=== PATIENT | male | born 1960 | race Caucasian/White ===

== ENCOUNTER 2019-10-10 15:08 | Outpatient (CLI) | payer OTHER, SELFPAY ==
--- NOTE | ~2019-10-10 | US_ITS ---
EXAMINATION: US soft tissue abdomen DATE: 10/10/2019 15:56 INDICATION: Palpable lump at the anterior right lower abdomen TECHNIQUE: Multiple grayscale and Doppler ultrasound images of the region of concern at the anterior right lower quadrant were obtained. COMPARISON: None FINDINGS/IMPRESSION: Nonspecific 2.0 x 0.7 x 2.2 cm subcutaneous mass at the region of concern which is isoechoic and with similar echotexture to the surrounding subcutaneous fat most consistent with and statistically most likely to represent a lipoma. Reviewed, dictated and finalized at location A. IE PADDER
== END 2019-10-10 15:09 | disposition home or self-care (01) ==
PROVIDERS: PCP Family Medicine; Visit Provider Family Medicine
DX: R19.00 Intra-abdominal and pelvic swelling, mass and lump, unspecified site (principal)
CPT/HCPCS: 76705

== ENCOUNTER 2023-11-20 21:48 | Emergency (ER) | payer OTHER, SELFPAY ==
[2023-11-20 22:14] VITALS: BP 148/92; PULSE 101; RESP 16; TEMP 36.1; O2SAT 94
[2023-11-20 23:23] VITALS: BP 134/89; PULSE 78; RESP 16; TEMP 36.6; O2SAT 97
--- NOTE | 2023-11-20 23:39 | PC.NURSE ---
Patient stated he was in pain. Notified EDP Dr. Olvera who VRBO [phone] Mouthcard PO.
[2023-11-20] MEDS: HYDROcodone/acetaminophen (*CRX) 5-325 MG TABLET 1 TAB PO (23:42)
[2023-11-20] MEDS: CYCLOBENZAPRINE HCL 10 MG TABLET PO (23:44)
--- NOTE | 2023-11-21 00:19 | ED.BACK ---
HPI - Back Pain/Injury General Chief Complaint: Back Pain/Injury Stated Complaint: L lower back pain, radiates down leg Time Seen by Provider: 11/20/23 23:38 History of Present Illness HPI Narrative: 63-year-old male presents to the emergency department for evaluation of left lower back pain. Patient states he had been at the gym a few weeks ago and after doing some straight leg it does lives he began to have a twinge in his left lower back. Patient states over the course of the week the pain did come and go but then began to worsen again during work today. Patient states he has gout left lower back pain that radiates to his left buttock and partially down his left thigh. Patient states that is not past his knee. Patient denies any associated numbness or weakness. Related Data Home Medications Medication Instructions Recorded Confirmed testosterone cypionate 100 mg/mL 50 mg IM ONCE 04/18/22 10/22/23 intramuscular oil (Depo-Testosterone) Allergies Allergy/AdvReac Type Severity Reaction Status Date / Time No Known Allergies Allergy Verified 10/22/23 15:04 Review of Systems Review of Systems: All systems reviewed & are unremarkable except as noted in HPI and below PMFSH Surgical History Surgical History H/O colonoscopy H/O hernia repair History of appendectomy Family History Family History Sibling Family history of thyroid disease Grandparent Diabetes mellitus Mother Family history of pancreatic cancer Family history of genetic disorder Other Family history of liver disease Social History Social History Social History: Caffeine- daily Smoking status: Never smoker Alcohol intake: current Drinks per week: 3 Alcohol use details: whiskey Exam Narrative: APPEARANCE: Well appearing, no pain, no distress, well-nourished. HEAD: normocephalic, atraumatic. EYES: PERRLA/EOMI, conjunctivae clear. NOSE: Normal no drainage NECK: Supple. No adenopathy, no masses. RESPIRATORY: Airway patent, respirations nonlabored. Clear to auscultation bilaterally, no rales, rhonchi, wheezing. CARDIOVASCULAR: Regular rate and rhythm without murmurs rubs or gallops. ABDOMINAL: Soft, nontender, nondistended, normal bowel sounds MUSCULOSKELETAL: Moves all extremities. Tenderness to left lower back and left buttock NEURO: Alert. Cranial nerves II through XII intact. Grossly intact SKIN: Warm, dry. Normal Color Course Course Emergency Course: Patient was discharged home with medications for pain control Vital Signs Vital signs: Vital Signs Temperature 97.0 F L 11/20/23 22:14 Pulse Rate 101 H 11/20/23 22:14 Respiratory Rate 16 11/20/23 22:14 Blood Pressure 148/92 H 11/20/23 22:14 Pulse Oximetry 94 11/20/23 22:14 Oxygen Delivery Room Air 11/20/23 22:14 Temperature 97.5 F L 11/21/23 00:55 Pulse Rate 77 11/21/23 00:55 Respiratory Rate 15 11/21/23 00:55 Blood Pressure 134/68 11/21/23 00:55 Pulse Oximetry 99 11/21/23 00:55 Oxygen Delivery Room Air 11/20/23 22:14 MDM - Back Pain/Injury MDM Narrative Medical decision making narrative: 63-year-old male presenting to the emergency department for evaluation of lower back pain that is consistent was sciatica. Patient is neurovascularly intact with no saddle anesthesia. Patient did feel improved with pain medication. Patient was discharged home with additional Flexeril and started on a Medrol Dosepak. Differential Diagnosis Differential diagnosis: Likely sciatica, strain of lumbar region, pyelonephritis, thoracic back pain and discitis Discharge Plan Discharge Clinical Impression: Sciatica Patient Disposition: Home, Self-Care Condition: Stable Instructions: Antibiotic Form, Sciatica (ED) Additional Instructions: Ibuprofen for nghia
[2023-11-21] MEDS: KETOROLAC 30 MG/ML VIAL (*BKC) IM (00:30)
[2023-11-21 00:55] VITALS: BP 134/68; PULSE 77; RESP 15; TEMP 36.4; O2SAT 99
== END 2023-11-21 00:56 | disposition home or self-care (01) ==
PROVIDERS: Emergency Provider Emergency Medicine; PCP Family Medicine
DX: M54.42 Lumbago with sciatica, left side (principal)
CPT/HCPCS: 96372; 99283; A9270; J1885

== ENCOUNTER 2023-12-02 15:31 | Outpatient (CLI) | payer OTHER, SELFPAY ==
--- NOTE | ~2023-12-02 | MR_ITS ---
EXAMINATION: MR lumbar spine wo con DATE: 12/02/2023 16:16 INDICATION: Low back pain. Left buttock pain. TECHNIQUE: Magnetic resonance imaging (MRI) of the lumbar spine was performed without intravenous con trast. Sequences included sagittal T2-weighted FSE, sagittal T2-weighted FS FSE, sagittal T1-weighted FSE, and axial T2-weighted FSE. COMPARISON: None FINDINGS: There is 9 degrees dextrocurvature of lumbar spine. Vertebral body heights are normal. Ther e is mildly decreased disc height from L1-L2 through L5-S1. The distal spinal cord signal intensity i s normal. The conus medullaris is at L1. The following disc levels are specifically discussed: L1-L2: The disc is bulging and has an annular fissure. There is mild bilateral facet joint osteoarthr itis. There is mild bilateral neural foraminal stenosis. There is mild central canal stenosis. L2-L3: The disc is bulging and has an annular fissure. There is mild bilateral facet joint osteoarthr itis. There is mild bilateral neural foraminal stenosis. There is mild central canal stenosis. L3-L4: The disc is bulging and has an annular fissure. There is moderate right and severe left facet joint osteoarthritis. There is a 4 mm synovial cyst posterior to left facet joint with surrounding ed hua. There is mild bilateral neural foraminal stenosis. There is mild central canal stenosis. L4-L5: The disc is bulging and has an annular fissure. There is moderate bilateral facet joint osteoa rthritis. There is moderate right and mild left neural foraminal stenosis. There is mild central mya l stenosis. L5-S1: The disc is bulging and has an annular fissure. There is moderate right and severe left facet joint osteoarthritis. There is mild bilateral neural foraminal stenosis. There is mild central canal stenosis. IMPRESSION: 1. Moderate right neural foraminal stenosis at L4-L5. Otherwise mild lumbar spondylosis. Reviewed, dictated and finalized at location A. IMPRESSION: 1. Moderate right neural foraminal stenosis at L4-L5. Otherwise mild lumbar spo ndylosis.
== END 2023-12-02 15:32 ==
LOC: GOSHIMG 15:33
PROVIDERS: PCP Family Medicine; Visit Provider Family Medicine
DX: M48.061 Spinal stenosis, lumbar region without neurogenic claudication (principal); M43.06 Spondylolysis, lumbar region
CPT/HCPCS: 72148

== ENCOUNTER 2024-09-05 06:00 | Day surgery (SDC) | payer OTHER, SELFPAY ==
[2024-08-16 09:44] VITALS: BMI 31.0
[2024-09-05] MEDS: LACTATED RINGERS 1,000 ML 150 ML IV CONT (06:30)
[2024-09-05 06:43] VITALS: BP 130/89; PULSE 90; RESP 15; TEMP 37.1; O2SAT 96
--- NOTE | 2024-09-05 07:18 | P.PNAN_ITS ---
Anes - Initial Pre Proc Eval Procedure: Operation Date: 09/05/24 07:30 Proposed Procedures p Screening Colonoscopy - Ernesto Feliciano DO Date/Time: 09/05/24 07:18 Surgeon: Ernesto Feliciano DO Pre Op Diagnosis: Neoplasm Screening Patient Data Age: 64 Gender: M Height: 1.83 m Weight: 104.8 kg Last Vital Signs Temp 37.1 C 09/05/24 06:43 Pulse 90 09/05/24 06:43 Resp 15 09/05/24 06:43 BP 130/89 09/05/24 06:43 Pulse Ox 96 09/05/24 06:43 O2 Del Method Room Air 09/05/24 06:43 Allergies Allergy/AdvReac Type Severity Reaction Status Date / Time No Known Allergies Allergy Verified 09/05/24 06:52 Home Medications ?Medication ?Instructions ?Recorded ?Confirmed ?Type testosterone cypionate 100 mg/mL 50 mg IM ONCE 04/18/22 08/16/24 History intramuscular oil (Depo-Testosterone) lisinopril 10 mg tablet See Rx Instructions .Route 07/19/24 09/05/24 Rx .COMPLEX #90 tabs simvastatin 10 mg tablet See Rx Instructions .Route 07/19/24 09/05/24 Rx .COMPLEX #90 tabs Patient hx anesthesia problems: none Family hx anesthesia problems: none Results Review: All pre-operative results and documents have been reviewed as part of the pre- operative evaluation. [facility] Past Medical History Medical History (Updated 09/05/24 @ 07:19 by Robi Shelley MD) HTN (hypertension) Surgical History Surgical History H/O hernia repair History of appendectomy H/O colonoscopy Family History Family History Sibling Family history of thyroid disease Grandparent Diabetes mellitus Mother Family history of pancreatic cancer Family history of genetic disorder Other Family history of liver disease Social History Social History Social History: Caffeine- daily Smoking status: Never smoker Alcohol intake: current Drinks per week: 3 Alcohol use details: whiskey Substance use: never Substance use type: does not use Living arrangements: with family Spiritual care concerns: No Anes - Eval Final PreProcedure Day of Procedure 09/05/24 07:18 Patient weight: obese Heart: regular rate and rhythm Lungs: clear to auscultation Airway: Mallampati scale class II Neurological: alert and oriented Last oral intake: >/= 8 hours ASA classification: III Emergent: no Anesthetic plan: proceed Anesthesia type and monitoring: general GIVS and standard monitoring Results Review: All pre-operative results and documents have been reviewed as part of the pre- operative evaluation. Informed Consent: The patient's anesthetic plan and its attendant risks and benefits were discussed with the patient/family/POA. Questions were solicited and answers provided to the satisfaction of the patient/family/POA.
--- NOTE | 2024-09-05 07:22 | P.HP_ITS ---
H&P: HPI History of Present Illness Date/Time: 09/05/24 07:22 Chief Complaint: Screening for colorectal cancer Narrative: 64 yo man presents for colonoscopy. Last done 10 years ago and was normal. Denies fam hx colon cancer. Denies hematochezia or melena. Review of Systems Review of Systems: All systems reviewed & are unremarkable except as noted in HPI and below Constitutional: Constitutional: Denies chills, Denies fever(s), Denies headache(s) and Denies weight loss Eyes: Eyes: Denies change in vision ENT: Denies dizziness, Denies headache(s), Denies neck mass and Denies throat swelling Cardiovascular: Cardiovascular: Denies chest pain, Denies lightheadedness and Denies dyspnea Respiratory: Respiratory: Denies cough, Denies dyspnea and Denies wheezing Gastrointestinal: Gastrointestinal: Denies abdominal pain, Denies change in bowel habits, Denies nausea and Denies vomiting Genitourinary: Genitourinary: Denies hematuria and Denies dysuria Musculoskeletal: Musculoskeletal: Reports as per HPI Integumentary/Breasts: Skin/Breast: Reports as per HPI Neurologic: Denies dizziness and Denies headache(s) Allergic/Immunologic: Allergic/Immunologic: Denies throat swelling and Denies wheezing COUNT INCLUDES THE [facility] Past Medical History Medical History (Updated 09/05/24 @ 07:19 by Robi Shelley MD) HTN (hypertension) Surgical History Surgical History H/O hernia repair History of appendectomy H/O colonoscopy Family History Family History Sibling Family history of thyroid disease Grandparent Diabetes mellitus Mother Family history of pancreatic cancer Family history of genetic disorder Other Family history of liver disease Social History Social History Social History: Caffeine- daily Smoking status: Never smoker Alcohol intake: current Drinks per week: 3 Alcohol use details: whiskey Substance use: never Substance use type: does not use Living arrangements: with family Spiritual care concerns: No Meds Home Medications and Allergies Home Medications ?Medication ?Instructions ?Recorded ?Confirmed ?Type testosterone cypionate 100 mg/mL 50 mg IM ONCE 08/19/22 12/17/24 History intramuscular oil (Depo-Testosterone) lisinopril 10 mg tablet See Rx Instructions .Route 07/19/24 09/05/24 Rx .COMPLEX #90 tabs simvastatin 10 mg tablet See Rx Instructions .Route 07/19/24 09/05/24 Rx .COMPLEX #90 tabs Allergies Allergy/AdvReac Type Severity Reaction Status Date / Time No Known Allergies Allergy Verified 09/05/24 06:52 Vital Signs Vital Signs - 24 hr 09/05/24 06:43 Temperature 98.7 F Pulse Rate 90 Respiratory Rate 15 Blood Pressure 130/89 Pulse Oximetry 96 Oxygen Delivery Room Air Exam Const: General: no acute distress and alert Orientation/consciousness: patient oriented x3 HENMT: Head: normocephalic and atraumatic Ears: hearing grossly normal bilaterally Face/Nose/Sinus: Normal nares present Mouth: Yes Normal oral and palatal mucosa present Eyes: Periorbital: periorbital findings normal Sclera: sclerae normal EOM: EOMs intact bilaterally Neck: Neck: normal visual inspection, no lymphadenopathy and trachea midline Chest: Chest palpation & inspection: normal inspection of the chest Resp: Effort & Inspection: normal respiratory effort Auscultation: clear to auscultation bilaterally Cardio: Jugular venous distension: no JVD Rate: regular rate Rhythm: regular rhythm Heart sounds: S1 normal heart sound present and S2 normal heart sound present Peripheral pulses: Peripheral pulses 2+ throughout GI: Inspection: normal to inspection GI Palp: Yes Soft to palpation, No Tenderness to palpation present (GI), No Guarding due to palpation present (GI) and No Rebound tenderness present Percussion: Yes normal to percussion Auscultation: normal bowel sounds : General: Yes no CVA tenderness Back/Spine/Pelvis: Back: no CVA tenderness Neuro: General: patient oriented x3, no focal motor deficits and CN's II-XI intact bilaterally Cognition (Neuro): normal cognition Speech: normal speech Motor exam (neuro): 5/5 motor strength present throughout Extrem: General: capillary refill normal and no clubbing, cyanosis or edema Assessment and Plan Assessment and plan (1) Screening for colon cancer: Code(s): Z12.11 - Encounter for screening for malignant neoplasm of colon Status: Acute Assessment and Plan: I have recommended colonoscopy. I have discussed the procedure, risks, benefits, and alternatives. Questions were answered. Patient is agreeable to proceed.
[2024-09-05 07:45] VITALS: BP 129/79; PULSE 77; RESP 16; O2SAT 96
[2024-09-05 07:55] VITALS: BP 153/87; PULSE 80; RESP 18; O2SAT 98
[2024-09-05 08:05] VITALS: BP 135/94; PULSE 71; RESP 18; O2SAT 98
--- NOTE | 2024-09-05 08:25 | WPDANESPN ---
Anes - Prog Note Post-Op Date/Time: 09/05/24 08:25 Cardiovascular status: normal Respiratory status: normal Airway patency: baseline Mental status: baseline Post-Op hydration status: normal Vital Signs: Last Vital Signs Temp 37.1 C 09/05/24 06:43 Pulse 71 09/05/24 08:05 Resp 18 09/05/24 08:05 BP 135/94 H 09/05/24 08:05 Pulse Ox 98 09/05/24 08:05 O2 Del Method Room Air 09/05/24 08:05 Pain Score (VAS): 0/10 I/O: Intake & Output 09/04/24 09/05/24 09/05/24 23:59 07:59 15:59 Intake Total 700 200 Balance 700 200 Patient Feedback: Patient satisfied with anesthetic care.
--- OUTSIDE RECORDS SUMMARY | 2024-09-11 14:26 | XMS_ITS | Encounter Summary ---
Author Organization [facility] Health Address [address] [place] [address] Care Team Providers Care Patient Service Specialist Name Role Phone Zev Villa MD Primary Care Provider [phone] Encounter Details Date Type Department Care Team (Late st Contact Info) Description 06/01/2023 Lab Requisition [facility] - DermPath Lab [address], [facility] [place] [address] [place] [address] [place] [address] Social History Tobacco Use Types Packs/Day Years Used Date Smoking Tobacco: Never Alcohol Use Standard Drinks/Week Comments Not Asked 0 (1 standard drink = 0.6 oz pur e alcohol) Sex and Gender Information Value Date Recorded Sex Assigned at Not on file Gender Identity Not on file Sexual Orientation Not on file documented as of this encounter Plan of Treatment Not on file documented as of this encounter Procedures Procedure Name Priority Date/Time Associated Diagnosis Comments DERMATOPATHOLOGY Routine 06/01/2023 3:33 AM CDT documented in this encounter Results * DERMATOPATHOLOGY (06/01/2023 3:33 AM CDT) Case Report Dermatopathology Report ? Case: [id number] ? Authorizing Provider: ??Josselin Andersen MD ? Collected: ? 06/01/2023 03:33 AM ? Ordering Location: ? [facility] DermPath Lab ? Received: ?06/01/2023 01:00 PM ? Pathologist: ? Zoey Mandujano MD ? Specimen: ?Skin, right calf ? 12:57 PM T DERMATOPATHOLOGY LABORATORY Final Diagnosis Specimen A. SKIN, right calf: LENTIGINOUS MELANOCYTIC NEVUS, JUNCTIONAL TYPE, IRRITATED (D22.71) 12:57 PM [facility] DERMATOPATHOLOGY LABORATORY Clinical History Atypical Nevus R/O MIS 12:57 PM T DERMATOPATHOLOGY LABORATORY Gross Description Specimen A: Received is one formalin filled container labeled with the patient's name and designated right calf. The specimen consists of a shave biopsy measuring 6x5x1 mm. Jar 0. 12:57 PM T DERMATOPATHOLOGY LABORATORY Microscopic Description Specimen A. SKIN, right calf: This is a junctional nevus. There is melanin pigment in the stratum corneum. There is a lentiginous proliferation of melanocytes between nests of cells along the dermal-epidermal junction. There is underlying fibroplasia of the papillary dermis. (Junctional Facundo's Nevus) 12:57 PM T DERMATOPATHOLOGY LABORATORY Disclaimer An external and internal positive and negative controls are appropriate for the histochemical, immunohistochemical and immunofluorescence stain(s) in this case (if any), except where stated explicitly. The performance characteristics of the stain(s) cited in this report were developed and its performance characteristic determined by the Dermatopathology Laboratory at [facility], directed by Dr. Ree Bolanos. These tests need not be, and therefore are not, approved by the [place] Food and Drug Administration. The tests are used for clinical purposes. Billing Codes Specimen Charges Stain Charges 79711 1 3 12:57 PM CDT DERMATOPATHOLOGY LABORATORY Embedded Images 3 12:57 PM CDT DERMATOPATHOLOGY LABORATORY Pathology/Cytolo gy TISSUE SPECIMEN FROM SKIN / Unknown 06/01/2023 3:33 AM CDT 06/01/2023 1:00 PM CDT Josselin Andersen MD LAB - PATHOLOGY/CYTO LOGY ORDERABLES DERMATOPATHOLOGY LABORATORY [facility] - Department of Dermatology [address] [phone] documented in this encounter Visit Diagnoses Not on filedocumented in this encounter Care Teams Patient Service Specialist Relationship Specialty Start Date End Date Zev Villa MD [address] [place] [id number] PCP - General 02/08/14 documented as of this encounter
--- OUTSIDE RECORDS SUMMARY | 2024-09-11 14:26 | XMS_ITS | Patient Health Summary ---
Author Organization [facility] Address [address] [place] [address] Care Team Providers Care Ingredient Scaler Name Role Phone Zev Villa MD Primary Care Provider Note from [facility],non-owned Affiliates and Associated Physician Practices is amultiple site organization consisting of ambulatory clinics and hospital sitesin [place], [place], [place] and [place]. This disclosure is being madepursuant to the Care Everywhere program and may not contain all information available regarding this patient. Last updated 18.[facility] [employer] Allergies * No Known Drug Allergy(Other) -Low Criticality Active Problems Problem Noted Date Diagnosed Date Malignant melanoma of other part of trunk 2013 Social History Tobacco Use Types Packs/Day Years Used Date Smoking Tobacco: Never Alcohol Use Standard Drinks/Week Comments Not Asked 0 (1 standard drink = 0.6 oz pur e alcohol) Sex and Gender Information Value Date Recorded Sex Assigned at Not on file Gender Identity Not on file Sexual Orientation Not on file Last Filed Vital Signs Vital Sign Reading Time Taken Comments Blood Pressure 136/78 03/19/2015 7:42 AM CDT Pulse 72 03/19/2015 7:42 AM CDT Temperature 36.1 ??C (97 ??F) 03/19/2015 7:42 AM CDT Respiratory Rate - - Oxygen Saturation 96% 03/19/2015 7:42 AM CDT Inhaled Oxygen Concentration - - Weight 93.4 kg (206 lb) 03/19/2015 7:42 AM CDT Height 180.3 cm (5' 11 ) 03/20/2014 8:10 AM CDT Body Mass Index 28.73 03/20/2014 8:10 AM CDT Procedures * DERMATOPATHOLOGY(Performed 06/01/2023) * DERMATOPATHOLOGY(Performed 06/29/2017) * DERMATOPATHOLOGY(Performed 09/25/2015) * DERMATOPATHOLOGY(Performed 08/15/2014) * DERMATOPATHOLOGY(Performed 05/16/2014) * PATHOLOGY/GENETICS HISTORICAL-ONBASE(Performed 02/17/2014) * DERMATOPATHOLOGY(Performed 02/02/2014) Results * DERMATOPATHOLOGY (06/01/2023 3:33 AM CDT) Only the most recent of6 resultswithin the time period is included. Case Report Dermatopathology Report ? Case: [id number] ? Authorizing Provider: ??Josselin Andersen MD ? Collected: ? 06/01/2023 03:33 AM ? Ordering Location: ? [facility] DermPath Lab ? Received: ?06/01/2023 01:00 PM ? Pathologist: ? Zoey Mandujano MD ? Specimen: ?Skin, right calf ? 12:57 PM CDT DERMATOPATHOLOGY LABORATORY Final Diagnosis Specimen A. SKIN, right calf: LENTIGINOUS MELANOCYTIC NEVUS, JUNCTIONAL TYPE, IRRITATED (D22.71) 3 12:57 PM CDT DERMATOPATHOLOGY LABORATORY Clinical History Atypical Nevus R/O MIS 3 12:57 PM CDT DERMATOPATHOLOGY LABORATORY Gross Description Specimen A: Received is one formalin filled container labeled with the patient's name and designated right calf. The specimen consists of a shave biopsy measuring 6x5x1 mm. Jar 0. 12:57 PM CDT DERMATOPATHOLOGY LABORATORY Microscopic Description Specimen A. SKIN, right calf: This is a junctional nevus. There is melanin pigment in the stratum corneum. There is a lentiginous proliferation of melanocytes between nests of cells along the dermal-epidermal junction. There is underlying fibroplasia of the papillary dermis. (Junctional Facundo's Nevus) 12:57 PM CDT DERMATOPATHOLOGY LABORATORY Disclaimer An external and internal positive and negative controls are appropriate for the histochemical, immunohistochemical and immunofluorescence stain(s) in this case (if any), except where stated explicitly. The performance characteristics of the stain(s) cited in this report were developed and its performance characteristic determined by the Dermatopathology Laboratory at [facility], directed by Dr. Ree Bolanos. These tests need not be, and therefore are not, approved by the [place] Food and Drug Administration. The tests are used for clinical purposes. Billing Codes Specimen Charges Stain Charges 58516 1 3 12:57 PM CDT DERMATOPATHOLOGY LABORATORY Embedded Images 3 12:57 PM CDT DERMATOPATHOLOGY LABORATORY Pathology/Cytolo gy TISSUE SPECIMEN FROM SKIN / Unknown 06/01/2023 3:33 AM CDT 06/01/2023 1:00 PM CDT Josselin Andersen MD LAB - PATHOLOGY/CYTO LOGY ORDERABLES DERMATOPATHOLOGY LABORATORY [facility] - Department of Dermatology [address] [phone] * PATHOLOGY/GENETICS HISTORICAL-ONBASE (02/17/2014) 02/17/2014 Narrative [facility] - 03/01/2014 2:18 PM CDT Historical Provider LAB - CHEMISTRY O RDERABLES [facility] [address] [place] [address], [facility] Care Teams Ingredient Scaler Relationship Specialty Start Date End Date Zev Villa MD [address] [place] [phone] PCP - General 02/08/14
--- OUTSIDE RECORDS SUMMARY | 2024-09-11 14:26 | XMS_ITS | Referral Summary ---
Author Organization [facility] Address [address] [place] [address] Care Team Providers Care Clinical Dietitian Name Role Phone Zev Villa MD Primary Care Provider [phone] Source Comments [facility],non-owned Affiliates and Associated Physician Practices is amultiple site organization consisting of ambulatory clinics and hospital sitesin [place], [place], [place] and [place]. This disclosure is being madepursuant to the Care Everywhere program and may not contain all information available regarding this patient. Last updated 18.[facility] Allergies Active Allergy Reactions Criticality Noted Date Comments No Known Drug Allergy Other Low 02/13/2014 Pt. States that his dad and sister/brother was/are allergic to morphine. He has not yet had morphine as is not sure if he is allergic too. Active Problems Problem Noted Date Diagnosed Date [...] Mass Index 28.73 03/20/2014 8:10 AM CDT Plan of Treatment Not on file Care Teams Clinical Dietitian Relationship Specialty Start Date End Date Zev Villa MD [address] [place] [address] PCP - General 02/08/14
--- OUTSIDE RECORDS SUMMARY | 2024-09-11 14:26 | XMS_ITS | Clinical Summary ---
Author Organization [facility] [employer] Address [address] [place] [address] Care Team Providers Care [employer] Worker Name Role Phone Zev Villa MD Primary Care Provider Source Comments [facility],non-owned Affiliates and Associated Physician Practices is amultiple site organization consisting of ambulatory clinics and hospital sitesin [place], [place], [place] and [place]. This disclosure is being madepursuant to the Care Everywhere program and may not contain all information available regarding this patient. Last updated 18.[facility] [employer] Allergies Active Allergy Reactions Criticality Noted Date [...] 03/20/2014 8:10 AM CDT Plan of Treatment Health Maintenance Due Date Last Done Comments COLOGUARD (AGES 45-75) - COL ON CA SCREENING 1961 COLON MONITORING 1961 COLONOSCOPY - COLON CA SCREENING 1961 CT COLONOGRAPHY - COLON CA SCREENING 1961 Colorectal Cancer Screening 1961 FIT - COLON CA SCREENING 1961 FLEX SIG - COLON CA SCREENING 1961 LIPID TESTING 1961 HIV SCREENING 1976 HEPATITIS C SCREENING 08/21/1979 DTAP/TDAP/TD VACCINES (1 - Tdap) 1980 ZOSTER VACCINE (1 of 2) 2011 DEPRESSION SCREENING 08/31/2023 COVID-19 VACCINE (1 - 2023-2 5 season) 2024 INFLUENZA VACCINE (#1) 2024 Respiratory Syncytial Virus (RSV) Vaccine Pt: or over 60 yrs (1 - 1-dose 75+ series) 2036 HEPATITIS B VACCINE Aged Out No longe r eligible based on patient's age to complete this topic HIB VACCINE Aged Out No longer eligi ble based on patient's age to complete this topic HPV VACCINE Aged Out No longer eligi ble based on patient's age to complete this topic MENINGOCOCCAL VACCINE Aged Out No drew rosi eligible based on patient's age to complete this topic PNEUMOCOCCAL VACCINE Aged Out No long er eligible based on patient's age to complete this topic Care Teams [employer] Worker Relationship Specialty Start Date End Date Zev Villa MD [address] [place] [id number] [facility] - General 02/08/14
--- OUTSIDE RECORDS SUMMARY | 2024-09-11 14:27 | XMS_ITS | Encounter Summary ---
Author Organization [facility] Healthcare Address [address] [place] [address] Care Team Providers Care Printing Estimator Name Role Phone Maia Real DO Primary Care Provider [phone]- [phone] Bill Lauren MD, Inocencio Stein Encounter Details Date Type Department Care Team (Late st Contact Info) Description 05/17/2021 11:00 AM CDT - 05/17/2021 12:15 PM CDT Surgery [facility] Operating Room [address] [place] [address] Inocencio Khan Jr., MD [address] [facility] [address] [place] [address] TRANSPERINEAL EXACT VU GUIDED PROSTATE BIOPSY Surgery Details Date/Time Status Location OR Service Patient Class Case Cl ass Case Type Trauma Case? 05/17/2021 11:00 AM Posted [facility] OPERATING ROOM OR Urology Outpatient Elective Panel 1 Procedure LRB Anes Op Region Wound Class Comments TRANSPERINEAL EXACT VU GUIDED PROSTATE BIOPSY N/A Monitor Anesthesia Care Perineum Class II - Clean Contaminated 3RD CASE Surgeon Surgeon Role Service Panel Inocencio Khan Jr., MD Primary Urology 1 Itzel Bah MD Resident - Assisting Urology 1 documented in this encounter Social History Tobacco Use Types Packs/Day Years Used Date Smoking Tobacco: Never Smokeless Tobacco: Never AUDIT-C Answer Date Recorded Q1: How often do you have a drink containing alc ohol? 2-3 times a week 05/17/2021 Q2: How many drinks containi ng alcohol do you have on a typical day when you are drinking? 1 or 2 05/17/2021 Q3: How often do you have si x or more drinks on one occasion? Monthly 05/17/2021 Sex and Gender Information Value Date Recorded Sex Assigned at Not on file Legal Sex Male 1:35 PM CDT Gender Identity Not on file Sexual Orientation Straight 02/19/2021 7: 19 AM CDT documented as of this encounter Last Filed Vital Signs Vital Sign Reading Time Taken Comments Blood Pressure 137/87 05/17/2021 12:15 PM CDT Pulse 74 05/17/2021 12:15 PM CDT Temperature 36.1 ??C (97 ??F) 05/17/2021 12:15 PM CDT Respiratory Rate 10 05/17/2021 12:15 PM CDT Oxygen Saturation 96% 05/17/2021 12:15 PM CDT Inhaled Oxygen Concentration - - Weight 99.2 kg (218 lb 9.6 oz) 05/17/2021 9:20 A M CDT Height 180.3 cm (5' 11 ) 05/17/2021 9:20 AM CDT Body Mass Index 30.49 05/17/2021 9:20 AM CDT documented in this encounter Discharge Instructions * Discharge Instructions* Itzel Bah MD - 05/17/2021 10:05 AM CDT Discharge Instructions: Surgery performed: Transperineal prostate biopsy New medications: - Acetaminophen and ibuprofen as needed for pain; take this scheduled for the next 72 hours, then afterwards as needed - Docusate/miralax as needed for constipation, available [id number] Pain Control: - Start by applying ice packs or heating pads and using over the counter medications such as acetaminophen (Tylenol) or ibuprofen (Advil or Motrin) unless otherwise specified by your doctor. - If your pain is still uncontrolled, you may take a stronger, prescription medication that contains opioids. Take only as much of this medication as you need. - As you recover, your pain will decrease and you will need less pain medication. You should only take pain medication if you are in pain. - If you are no longer taking any of your opioid medication and have leftover pills, dispose of them by placing them in a plastic bag, adding dish soap, and throwing them in the trash. Diet: [place] diet: At first eat a bland diet; avoid foods that are high in fiber, have a lot of spices, or are high infat. You can begin slowly eating these foods when you are feeling better. Activity: - Do NOT lift anything over 10 pounds for 4 weeks - Do NOT drive or operate machinery if you are taking narcotic pain medicine. - Do NOT take baths or swim in pools or hot tubs for 4 weeks. - Walking is encouraged. Climbing stairs is OK. As part of your prostate biopsy procedure, a needle was inserted into the skin between the anus andscrotum. In order to promote healing: - Do NOT sit in hard backed chairs, ride bicycles, or engage in other activities that may put pressure on the perineal region. - Do NOT place anything in your rectum. This includes medications such as suppositories, applicators of any sort, enemas, sexual paraphernalia, or anal intercourse. - Avoid straining to urinate or have a bowel movement. Take stool softeners as necessary to help with constipation. Contact your doctor if: - You have a fever higher than 101 F (38.3 C). - You have nausea, vomiting or diarrhea. - Your pain medicine is not helping your pain. - You feel dizzy, very tired or like you may faint. - You are unable to urinate. - You have large blood clots in your urine. (Small amounts of blood-tinged urine and a few small clots are normal, especially after physical activity.) Thursday through Thursday, 8 AM to 5:00 PM, call [phone] and ask for a member of your doctor's team. For urgent matters, after 5:00 PM during the week, on weekends and holidays, call [phone] and ask to have the Urology Transformer Inspector Physician paged for you. Follow up: Your urologist will call you with the results of the biopsy. To schedule an appointment, or if you have any questions or concerns, please call the urology office at . No future appointments. documented in this encounter Medications at Time of Discharge CREATINE MONOHYDRATE ORALIndications:s upplement Take by mouth every morning Powder, mix in water glucosamine HCl/chondroitin villa (GLUCOSAMINE-FRANCA DROITIN ORAL)Indications: supplement Take 1 capsule by mouth every morning KRILL OIL ORALIndications:s upplement Take 1 capsule by mouth every morning lisinopriL (PRINIVIL,ZESTRIL ) 10 mg tabletIndications :hypertension Take 10 mg by mouth every morning 05/05/2021 LYSINE ORALIndications:s upplement Take 1 capsule by mouth every morning multivitamin capsuleIndication s:Vitamin Deficiency Prevention Take 1 capsule by mouth every morning sildenafiL (VIAGRA) 100 mg tablet Take 100 mg by mouth as needed for erectile dysfunction 03/13/2021 simvastatin (ZOCOR) 10 mg tabletIndications :hyperlipidemia Take 10 mg by mouth nightly 05/05/2021 testosterone cypionate (DEPO-TESTOTERONE ) 100 mg/mL injectionIndicati ons:Androgen Deficiency Inject 0.25 mL into the muscle as instructed 2 (two) times a week Wed, Sat. 04/13/2020 vitamin E acetate (VITAMIN E ORAL)Indications: supplement Take 1 capsule by mouth every morning ibuprofen (ADVIL,MOTRIN) 400 mg tablet Take 400 mg by mouth as needed for pain 3 documented as of this encounter Discharge Disposition Disposition Code Departure Means Destination Discharge to home or self care documented in this encounter H&P Notes * Inocencio Khan Jr., MD - 05/17/2021 10:29 AM CDT I have reviewed the H&P, examined the patient, and endorse the findings as written. Plan of Care : Based on the above findings, I consider Justin Samuels to be an acceptable risk for : Procedure(s): TRANSPERINEAL EXACT VU GUIDED PROSTATE BIOPSY Source Note - Darlyn Duke MD - 05/10/2021 8:45 AM CDT Images from the original note were not included. Center for Preoperative Assessment and Planning Preoperative Evaluation Record Evaluation type/location: TPAP from [facility] Planned procedure site: [facility] OR Date: 05/10/21 NOTE: This note represents a preoperative evaluation initiated via telephone interview. NO PHYSICALEXAM was performed at the time of initial assessment. A physical exam may be added to this note anddocumented below. Anesthesia Evaluation Justin Samuels is a 60 y.o. male Procedure(s): TRANSPERINEAL EXACT VU GUIDED PROSTATE BIOPSY Pre-Op Diagnosis Codes: * Elevated PSA [R97.20] HISTORY HPI Justin Samuels is a 60 year old male with a PMH of HTN and elevated PSA who is being evaluated prior to undergoing transperineal exact VU guided prostate biopsy for elevated PSA . Past Medical History Information obtained from: patient and chart. Neurological Pertinent negatives: seizures; neuromuscular disease; CVA/stroke; TIA; CEA; ICA stenosis; dementia/mild cognitive impairment and carotid artery stent Cardiovascular + Hypertension Pertinent negatives: CAD ; [place] ; CABG ; valvular heart disease; valve replacement; atrial fibrillation; arrhythmia; pacemaker/ICD; PVD; DVT/PE; negative for CHF; drug-eluting stent(s); bare metal stent(s) and coronary angioplasty Respiratory Pertinent negatives: COPD; asthma; sleep apnea (LENORE); pulmonary hypertension; no O2 use outside thehospital and non-smoker Hepatic / Heme Pertinent negatives: liver disease; history of anemia; history of thrombocytopenia and history of Neha positive Gastrointestinal + GERD - PRN medication use only. Asymptomatic. Pertinent negatives: hiatal hernia Renal / Pertinent negatives: renal disease; dialysis and nephrolithiasis Musculoskeletal/Pain Pertinent negatives: chronic pain; chronic opioid use and previous treatment for opioid use disorder Endocrine / Other + Obesity (BMI >30) + Cancer history- skin cancer only. Pertinent negatives: diabetes mellitus; thyroid disease; rheumatological disease and transplanted organ Functional Capacity Functional capacity: 4-6 METs Comments: Patient states that they can walk 4 blocks at a moderate pace w/no SOB or CP Review of Systems + heartburn (occasional) Pertinent negatives: productive cough; wheezing; SOB; fever; chest pain; palpitations; orthopnea; pedal edema; PND; Sickle Cell disease/trait; previous transfusion; transfusion reaction; melena/hematochezia; easy bruising; bleeding problems; syncope; dizziness; muscle weakness; chronic pain; numbness/tingling; hard of hearing; vision loss; nausea; dysphagia; diarrhea; dentures/partials; chipped/loose teeth; abdominal pain; diaphoresis and no unexpected weight changeRecent cough or cold: reportssinus issues in the past 2 weeks. PAT Summary and Plans Cardiac risk classification of planned procedure: low cardiac risk. Preoperative assessment status: complete. Additional comments: Justin Samuels is a 60 y.o. male who is being evaluated prior to undergoing a lowcardiac risk surgery. Revised Cardiac Risk Index factors are (none) for a total RCRI of 0 out of 6.Functional capacity is 4-6 METs. Obstructive sleep apnea (LENORE) screening status is STOP-BANG incomplete at 3-4 suggesting MODERATE risk for LENORE. Neck circumference pending. May need LENORE order set initiated if Co2 >27. This assessment was performed via telephone. Therefore the physical exam has been deferred to the day of surgery team. The patient was provided with preoperative instructions for their medications. The patient was instructed to shower/bathe the night prior and the morning of the planned procedure using an antibacterial soap. Patient instructions were provided electronically sent via [employer]. Patient verbalized understanding of preoperative plan. Blood bank needs for day of procedure: No type and screen needed Pending labs/tests include: None Patient's COVID19 status is: Unexposed. The patient currently has no concerning symptoms of COVID19. Patient's COVID-19 vaccination status is Fully vaccinated. Documentation of vaccination status is available in the Epic Immunization tab. Plan for pre-procedure COVID19 testing: Telephone assessmentperformed. Request placed for pre-procedure COVID19 testing to be performed on 05/13/21. [facility] will place the order for testing. Result to be reviewed by surgeon's office. TPAP process complete. Preoperative evaluation performed by Joana Solis NP on 05/10/21 at 8:51 AM . Patient Active Problem List Diagnosis ??? Elevated PSA Past Medical History: Diagnosis Date ??? Hypertension Past Surgical History: Procedure Laterality Date ??? APPENDECTOMY 1969 ??? COLONOSCOPY 2010 ??? HERNIA REPAIR 1987 ??? SKIN CANCER EXCISION 2013 back No Known Allergies Med List Status: Nurse Complete Set By: Bridgett Holder RN at 05/09/2021 2:39 PM Taking? Last Dose Start Date End Date Provider CREATINE MONOHYDRATE ORAL 05/09/2021 -- -- Vijaya Hayes MD glucosamine HCl/chondroitin villa (GLUCOSAMINE-CHONDROITIN ORAL) 05/09/2021 -- -- Vijaya Hayes MD ibuprofen (ADVIL,MOTRIN) 400 mg tablet Past Week -- -- Vijaya Hayes MD KRILL OIL ORAL 05/09/2021 -- -- Vijaya Hayes MD lisinopriL (PRINIVIL,ZESTRIL) 10 mg tablet 05/09/2021 05/05/21 -- Vijaya Hayes MD LYSINE ORAL 05/09/2021 -- -- Vijaya Hayes MD multivitamin capsule 05/09/2021 -- -- Vijaya Hayes MD sildenafiL (VIAGRA) 100 mg tablet Past Week 03/13/21 -- Vijaya Hayes MD simvastatin (ZOCOR) 10 mg tablet 05/08/2021 05/05/21 -- Vijaya Hayes MD testosterone cypionate (DEPO-TESTOTERONE) 100 mg/mL injection Past Week 04/13/20 -- Vijaya Hayes MD vitamin E acetate (VITAMIN E ORAL) 05/09/2021 -- -- Vijaya Hayes MD No current facility-administered medications for this encounter. Current Outpatient Medications: ??? CREATINE MONOHYDRATE ORAL ??? glucosamine HCl/chondroitin villa (GLUCOSAMINE-CHONDROITIN ORAL) ??? ibuprofen (ADVIL,MOTRIN) 400 mg tablet ??? KRILL OIL ORAL ??? lisinopriL (PRINIVIL,ZESTRIL) 10 mg tablet ??? LYSINE ORAL ??? multivitamin capsule ??? sildenafiL (VIAGRA) 100 mg tablet ??? simvastatin (ZOCOR) 10 mg tablet ??? testosterone cypionate (DEPO-TESTOTERONE) 100 mg/mL injection ??? vitamin E acetate (VITAMIN E ORAL) Social History Tobacco Use Smoking Status Never Smoker Smokeless Tobacco Never Used Substance and Sexual Activity Alcohol Use Not on file Substance and Sexual Activity Drug Use Never No family history on file. There were no vitals filed for this visit. Ridge index score: 100 DOS Physical Exam Medical history, medications, and allergies reviewed. Attestation: This PAT evaluation Airway Exam: Mallampati: III Cervical ROM: FROM TM distance: 3.5 Jaw ROM: full Cardiovascular Exam: Rate: regular Rhythm: regular Pulmonary Exam: LCTA, bilat EENT Exam: trachea midline Dental Exam: Appears intact Current state: Patient's current state is cooperative and interactive. Anesthesia Plan ASA 2 My patient is approved for the Anesthesia Controlled Medication protocol when under care of a GERIATRIC NURSE PRACTITIONER Planned anesthesia: General/TIVA Induction: Induction: intravenous. Postoperative Plan: Postoperative administration opioids intended. No postoperative mechanical ventilation intended. Informed Consent: Discussed plan with GERIATRIC NURSE PRACTITIONER. Anesthesia plan and risks discussed with patient. Consent and Attending signature: I and/or my designee have discussed the anesthesia plan, benefits, possible alternatives, parental presence at time of induction (if indicated), and clinically relevant risks that may include dental injury, unintentional awareness, and/or other complications. The patient and/or parent/legal guardian understand, and agree to proceed. All questions answered. * Itzel Bah MD - 05/17/2021 10:05 AM CDT I have reviewed the H&P, examined the patient, and endorse the findings as written. Plan of Care : Based on the above findings, I consider Justin Samuels to be an acceptable risk for : Procedure(s): TRANSPERINEAL EXACT VU GUIDED PROSTATE BIOPSY Cosigned by Inocencio Khan Jr., MD at 05/17/2021 10:30 AM CDT Source Note - Joana Solis NP - 05/10/2021 8:45 AM CDT Images from the original note were not included. Center for Preoperative Assessment and Planning Preoperative Evaluation Record Evaluation type/location: TPAP from [facility] Planned procedure site: [facility] OR Date: 05/10/21 NOTE: This note represents a preoperative evaluation initiated via telephone interview. NO PHYSICALEXAM was performed at the time of initial assessment. A physical exam may be added to this note anddocumented below. Anesthesia Evaluation Justin Samuels is a 60 y.o. male Procedure(s): TRANSPERINEAL EXACT VU GUIDED PROSTATE BIOPSY Pre-Op Diagnosis Codes: * Elevated PSA [R97.20] HISTORY HPI Justin Samuels is a 60 year old male with a PMH of HTN and elevated PSA who is being evaluated prior to undergoing transperineal exact VU guided prostate biopsy for elevated PSA . Past Medical History Information obtained from: patient and chart. Neurological Pertinent negatives: seizures; neuromuscular disease; CVA/stroke; TIA; CEA; ICA stenosis; dementia/mild cognitive impairment and carotid artery stent Cardiovascular + Hypertension Pertinent negatives: CAD ; [place] ; CABG ; valvular heart disease; valve replacement; atrial fibrillation; arrhythmia; pacemaker/ICD; PVD; DVT/PE; negative for CHF; drug-eluting stent(s); bare metal stent(s) and coronary angioplasty Respiratory Pertinent negatives: COPD; asthma; sleep apnea (LENORE); pulmonary hypertension; no O2 use outside thehospital and non-smoker Hepatic / Heme Pertinent negatives: liver disease; history of anemia; history of thrombocytopenia and history of Neha positive Gastrointestinal + GERD - PRN medication use only. Asymptomatic. Pertinent negatives: hiatal hernia Renal / Pertinent negatives: renal disease; dialysis and nephrolithiasis Musculoskeletal/Pain Pertinent negatives: chronic pain; chronic opioid use and previous treatment for opioid use disorder Endocrine / Other + Obesity (BMI >30) + Cancer history- skin cancer only. Pertinent negatives: diabetes mellitus; thyroid disease; rheumatological disease and transplanted organ Functional Capacity Functional capacity: 4-6 METs Comments: Patient states that they can walk 4 blocks at a moderate pace w/no SOB or CP Review of Systems + heartburn (occasional) Pertinent negatives: productive cough; wheezing; SOB; fever; chest pain; palpitations; orthopnea; pedal edema; PND; Sickle Cell disease/trait; previous transfusion; transfusion reaction; melena/hematochezia; easy bruising; bleeding problems; syncope; dizziness; muscle weakness; chronic pain; numbness/tingling; hard of hearing; vision loss; nausea; dysphagia; diarrhea; dentures/partials; chipped/loose teeth; abdominal pain; diaphoresis and no unexpected weight changeRecent cough or cold: reportssinus issues in the past 2 weeks. PAT Summary and Plans Cardiac risk classification of planned procedure: low cardiac risk. Preoperative assessment status: complete. Additional comments: Justin Samuels is a 60 y.o. male who is being evaluated prior to undergoing a lowcardiac risk surgery. Revised Cardiac Risk Index factors are (none) for a total RCRI of 0 out of 6.Functional capacity is 4-6 METs. Obstructive sleep apnea (LENORE) screening status is STOP-BANG incomplete at 3-4 suggesting MODERATE risk for LENORE. Neck circumference pending. May need LENORE order set initiated if Co2 >27. This assessment was performed via telephone. Therefore the physical exam has been deferred to the day of surgery team. The patient was provided with preoperative instructions for their medications. The patient was instructed to shower/bathe the night prior and the morning of the planned procedure using an antibacterial soap. Patient instructions were provided electronically sent via [employer]. Patient verbalized understanding of preoperative plan. Blood bank needs for day of procedure: No type and screen needed Pending labs/tests include: None Patient's COVID19 status is: Unexposed. The patient currently has no concerning symptoms of COVID19. Patient's COVID-19 vaccination status is Fully vaccinated. Documentation of vaccination status is available in the Epic Immunization tab. Plan for pre-procedure COVID19 testing: Telephone assessmentperformed. Request placed for pre-procedure COVID19 testing to be performed on 05/13/21. [facility] will place the order for testing. Result to be reviewed by surgeon's office. TPAP process complete. Preoperative evaluation performed by Joana Solis NP on 05/10/21 at 8:51 AM . Patient Active Problem List Diagnosis ??? Elevated PSA Past Medical History: Diagnosis Date ??? Hypertension Past Surgical History: Procedure Laterality Date ??? APPENDECTOMY 1969 ??? COLONOSCOPY 2010 ??? HERNIA REPAIR 1987 ??? SKIN CANCER EXCISION 2013 back No Known Allergies Med List Status: Nurse Complete Set By: Bridgett Holder RN at 05/09/2021 2:39 PM Taking? Last Dose Start Date End Date Provider CREATINE MONOHYDRATE ORAL 05/09/2021 -- -- Vijaya Hayes MD glucosamine HCl/chondroitin villa (GLUCOSAMINE-CHONDROITIN ORAL) 05/09/2021 -- -- Vijaya Hayes MD ibuprofen (ADVIL,MOTRIN) 400 mg tablet Past Week -- -- Vijaya Hayes MD KRILL OIL ORAL 05/09/2021 -- -- Vijaya Hayes MD lisinopriL (PRINIVIL,ZESTRIL) 10 mg tablet 05/09/2021 05/05/21 -- Vijaya Hayes MD LYSINE ORAL 05/09/2021 -- -- Vijaya Hayes MD multivitamin capsule 05/09/2021 -- -- Vijaya Hayes MD sildenafiL (VIAGRA) 100 mg tablet Past Week 03/13/21 -- Vijaya Hayes MD simvastatin (ZOCOR) 10 mg tablet 05/08/2021 05/05/21 -- Vijaya Hayes MD testosterone cypionate (DEPO-TESTOTERONE) 100 mg/mL injection Past Week 04/13/20 -- Vijaya Hayes MD vitamin E acetate (VITAMIN E ORAL) 05/09/2021 -- -- Vijaya Hayes MD No current facility-administered medications for this encounter. Current Outpatient Medications: ??? CREATINE MONOHYDRATE ORAL ??? glucosamine HCl/chondroitin villa (GLUCOSAMINE-CHONDROITIN ORAL) ??? ibuprofen (ADVIL,MOTRIN) 400 mg tablet ??? KRILL OIL ORAL ??? lisinopriL (PRINIVIL,ZESTRIL) 10 mg tablet ??? LYSINE ORAL ??? multivitamin capsule ??? sildenafiL (VIAGRA) 100 mg tablet ??? simvastatin (ZOCOR) 10 mg tablet ??? testosterone cypionate (DEPO-TESTOTERONE) 100 mg/mL injection ??? vitamin E acetate (VITAMIN E ORAL) Social History Tobacco Use Smoking Status Never Smoker Smokeless Tobacco Never Used Substance and Sexual Activity Alcohol Use Not on file Substance and Sexual Activity Drug Use Never No family history on file. There were no vitals filed for this visit. Ridge index score: 100 documented in this encounter Miscellaneous Notes * Op Note - Inocencio Khan Jr., MD - 05/17/2021 11:00 AM CDT Surgeon: Inocencio Khan MD Molecular Biology Professor: DR Alberto INDICATIONS The patient has elevated PSA ?? PROCEDURE Transrectal ultrasound of the prostate using Exact Vu Microultrasound Transrectal ultrasound-guided transperineal template mapping biopsy using the 10 sector technique. ?? DESCRIPTION The patient was placed in the dorsal lithotomy position. He was prepped and draped in a sterile manner. I introduced the probe into the rectum. I took numerous sagittal and parasagittal views. ?? Then under transrectal ultrasound guidance I performed transperineal biopsies using the 10 sector technique. I took approximately 3 cores per each sector. Sector 2 and 4 had a PRIMUS 4 abnormality and this was targeted for biopsy ?? At the conclusion of the procedure I withdrew the probe. There was minimal bleeding. The patient tolerated the procedure well. I was present for and I personally performed the procedure. ?? SPECIMENS REMOVED Numerous prostate biopsies. ?? ESTIMATED BLOOD LOSS 10 mL. ?? CRYSTALLOID 600 ?? COLLOID None. ?? TRANSFUSION None. ?? SPONGE, INSTRUMENT AND NEEDLE COUNT Correct. * Pre-Procedure Instructions - Joana Solis NP - 05/10/2021 8:47 AM CDT Center for Preoperative Assessment and Planning CPAP Clinic Location: [facility] The night before your surgery: * Do not eat or drink anything after midnight. This includes candy, mint, gums, chewable antacids (TUMS, Rolaids) and cough drops * Do not smoke after midnight the night before surgery. It is best to stop smoking now to improve your health. The morning of your surgery: * You may brush your teeth and rinse your mouth out. * Do not glue your dentures. * Do not wear jewelry, body piercings, makeup, hairpins, false eyelashes or contact lenses to the hospital. * Leave any valuables at home or with your family. * If having surgery at [facility], you may want to bring a credit card if you want to use our Mobile Pharmacy for your discharge medications. Mobile pharmacy is not available at [facility], the [facility], or the [place] [facility]. Outpatient Surgery: * You must have a responsible adult drive you home and stay with you for 24 hours after your surgery * You cannot be alone at home or in a hotel * Please call your surgeon's office if you do not have someone to drive you home and/or stay with you after surgery * Please bring any items you may need to spend the night in the hospital. Sometimes patients need to be cared for in the hospital overnight. Instructions For Your Medications: Pre-Surgery Instructions: Medication Instructions ??? CREATINE MONOHYDRATE ORAL Don't take on day of surgery ??? glucosamine HCl/chondroitin villa (GLUCOSAMINE-CHONDROITIN ORAL) Don't take on day of surgery ??? ibuprofen (ADVIL,MOTRIN) 400 mg tablet Stop taking 5 days prior to surgery ??? KRILL OIL ORAL Don't take on day of surgery ??? lisinopriL (PRINIVIL,ZESTRIL) 10 mg tablet Don't take on day of surgery ??? LYSINE ORAL Don't take on day of surgery ??? multivitamin capsule Don't take on day of surgery ??? sildenafiL (VIAGRA) 100 mg tablet Don't take on day of surgery ??? simvastatin (ZOCOR) 10 mg tablet Take as normal ??? testosterone cypionate (DEPO-TESTOTERONE) 100 mg/mL injection ??? vitamin E acetate (VITAMIN E ORAL) Stop taking 1 week prior to surgery General Instructions For Medications: ?? * Stop all of these medications 5 days prior to your surgery: excedrin, motrin, advil, ibuprofen, aleve, naproxen, meloxicam, celebrex, celecoxib.? For medications that you are instructed to take on the morning of surgery, take the medications with a few sips of water. ?? Stop all of these medications 7-14 days prior to your surgery: Vitamin E, Herbal medicines, DietPills ?? If you have pain, you may take tylenol (acetaminophen). Do not take more than 6 tablets or 3000 mg (3 g) within a 24 period. Call your surgeon and the CPAP clinic if any of the following happens before surgery: ?? Any changes in your health ?? You have a fever ?? You have any signs of an infection (chest, urinary tract or tooth) ?? You have been to the Emergency Room or were in the hospital ?? You have started taking any new medications ?? You have questions about a bowel prep or special diet before surgery * Perioperative Nursing Note - Bridgett Holder RN - 05/09/2021 2:41 PM CDT Center for Preoperative Assessment and Planning Perioperative Nursing Note Telephone Preoperative Evaluation ([facility]) - TELEPHONE ONLY, NO PHYSICAL EXAM Date: 05/09/21 Vitals: 05/09/21 1429 Weight: 99.8 kg (220 lb) Height: 180.3 cm (5' 11 ) CHEST CIRCUMFERENCE: N/A Social History Tobacco Use Smoking Status Never Smoker Smokeless Tobacco Never Used Substance and Sexual Activity Drug Use Never Alcohol Use How often do you have a drink containing alcohol?: 2-3 times a week How many drinks containing alcohol do you have on a typical day when you are drinking?: 1 or 2 How often do you have six or more drinks on one occasion?: Monthly Outpatient Medications Marked as Taking for the 05/17/21 encounter (Hospital Encounter) Medication Sig Dispense Refill ??? CREATINE MONOHYDRATE ORAL Take by mouth every morning Powder, mix in water ??? glucosamine HCl/chondroitin villa (GLUCOSAMINE-CHONDROITIN ORAL) Take 1 capsule by mouth every morning ??? ibuprofen (ADVIL,MOTRIN) 400 mg tablet Take 400 mg by mouth as needed for pain ??? KRILL OIL ORAL Take 1 capsule by mouth every morning ??? lisinopriL (PRINIVIL,ZESTRIL) 10 mg tablet Take 10 mg by mouth every morning ??? LYSINE ORAL Take 1 capsule by mouth every morning ??? multivitamin capsule Take 1 capsule by mouth every morning ??? sildenafiL (VIAGRA) 100 mg tablet Take 100 mg by mouth as needed for erectile dysfunction ??? simvastatin (ZOCOR) 10 mg tablet Take 10 mg by mouth nightly ??? testosterone cypionate (DEPO-TESTOTERONE) 100 mg/mL injection Inject 0.25 mL into the muscle asinstructed 2 (two) times a week Wed, Sat. ??? vitamin E acetate (VITAMIN E ORAL) Take 1 capsule by mouth every morning Implants No active implants to display in this view. SKIN Piercings Remaining: No Wound (LDAs) Type of Wound (LDA): (None) SCREENINGS High Fall Risk Score (Retired): 15 Ridge index score: 100 PATIENT CARE PLANNING Advance Directives (For Healthcare) Have you reviewed your Advance Directive and is it valid for this stay?: Not applicable Advance Directive: Patient has advance directive, copy not in chart Advance Directive not in Chart: Copy requested from family Communication/County Coroner Needs Communication Needs: Glasses Patient's Preferred Language: Nauruan Does caregiver's language differ from patient's?: No Is an tectonophysicist needed? : No Assistive Devices/DME: Eyeglasses Hearing - Right Ear: Functional Hearing - Left Ear: Functional Discharge Planning Type of Residence: Private residence Living Arrangements: Spouse/significant other Support Systems: Spouse/significant other Patient expects to be discharged to:: Private residence (Taryn will be sprinkler driver after surgery.) COVID Screening Covid-19 Screening In the last 10 days have you had any new or worsening cough, SOB, fever (>=100F), body aches, loss of taste or smell, diarrhea or vomiting, or sore throat?: No Have you had close contact with anyone with confirmed or suspected COVID-19 in the past 2 weeks?: No Do you live in or work in a congregate living facility (ex. assisted living/retirement facility, fdc, senior living)?: No Have you tested positive for COVID-19 within the last 14 days?: No Have you previously tested positive for COVID-19? No Have you had a COVID -19 exposure within the past 14 days? No Were both or all people exposed wearing masks (cloth, isolation, surgical or N95)? N/A TESTING PLAN-See Instructions for plan We recommend you Self-Isolate after COVID Testing: Stay at home, if possible until your surgery date. Maintain a 6 foot distance from other people (social distancing). Avoid touching your eyes, nose and mouth with unwashed hands. Wash your hands often with soap and water for at least 20 seconds. Use an alcohol- based hand training officer that contains at least 60% alcohol if soap and water are not available. ADDITIONAL COMMENTS/ FOLLOW UP * Pre-Procedure Instructions - Bridgett Holder RN - 05/09/2021 2:40 PM CDT PRE-SURGICAL INSTRUCTIONS ??? General Information ?? Surgery location provided to patient. ?? Arrival time and surgical time will be provided by your surgeon. ?? Wear something clean, loose, comfortable and easy to get in and out of. ?? Leave your valuables and any jewelry at home (No metal or piercings are allowed in the operatingroom) ?? Bring your insurance card, a photo ID (like a Medical Manager's license) and a method of payment for any insurance copay, deductible, or copay for discharge medications. ?? Bring a complete, up to date list of all of your medications including any over the counter medications or supplements you may take. ? How To Prepare Your Skin For Surgery Antiseptic/antibacterial soap will decrease the amount of germs on your skin. It is important to minimize the risk of getting an infection by doing the following: ?? Change all the linens on the bed the night before surgery so you are sleeping on clean fresh sheets and pillowcases. ?? Shower the evening before and the morning of surgery with an antibacterial soap such as Dial or a surgical soap known as chlorhexidine (Hibiclens). You can purchase this soap at any pharmacy or department store or come by our CPAP clinic and we will give it to you free of charge. Do not use thissoap on your face or hair. ?? Wash your hair and face with your regular shampoo (no conditioners) and facial cleanser. ?? Take a shower using ?? cup (2 oz.) of antiseptic soap applied to a clean fresh washcloth. Scrub your entire body from the neck down. If you can't reach the surgical site, such as your back, have someone help you with your shower. Step out of the water and leave soap on your skin for 2 minutes prior to rinsing off. Rinse thoroughly and dry yourself off with a clean fresh dry towel. ?? Wear clean clothes or pajamas to sleep in and on morning of surgery. ?? Nothing extra on the skin or hair such as deodorant, makeup, hair products, lotions, powders, Vaseline, creams, or perfumes the evening before and the morning of surgery. ?? The morning of the surgery repeat the shower process with the remaining ?? cup (2 oz.) of surgical scrub using another fresh wash cloth and towel. ?? Do not shave the morning of surgery. ?? REMEMBER no deodorant, make-up, lotions, powders, creams, Vaseline, oils, conditioners or hair products the morning of the surgery. COVID TESTING PLAN: Please note, the below is the Pre-Procedure COVID Testing Plan for the Center for Preoperative Assessment & Planning for Anesthesia. Surgeon's offices may require additional testing. If so, the surgeon's office will reach out to the patient to discuss further testing. COVID Test [facility]. HOLIDAY hours may vary at testing site. Test to be performed on 05/13/[address] [address], M-F 8a-7:30p, Sat/Sun 8a-7:30p. Telephone assessment performed. Patient states that they are fully COVID vaccinated and COVID vaccination information verified through [facility] Immunization Registry Database. If you have COVID testing or should have COVID testing for your surgery/procedure, please read below section: If you need to reschedule your COVID test to a different location or if your surgery gets rescheduled, you MUST call [phone] Thursday-Thursday 8am-4:30pm to get your COVID testing rescheduled or your lab order will not be available at Testing Sites. COVID Testing is only valid for up to 96 hours prior to surgery date, unless otherwise specified. If you are unable to reach staff at the above phone number, please call the CPAP Staff at [phone]. This number cannot order a lab test, but can attempt to contact the above number/staff to assist you. We are available Thursday-Thursday 8am-4:30pm . We recommend you Self-Isolate after COVID Testing: Stay at home, if possible until your surgery date. Maintain a 6 foot distance from other people (social distancing). Avoid touching your eyes, nose and mouth with unwashed hands. Wash your hands often with soap and water for at least 20 seconds. Use an alcohol- based hand training officer that contains at least 60% alcohol if soap and water are not available. All patients should read below section: All visitors/patients are being asked to wear a clean mask when entering the hospital. COVID 19 Updates & Visitor Policy: Please access [email or web address] for the most updated information. Information on [facility]: Please view [email or web address] (Patient & Visitor Information) for additional details regarding Advanced Directive forms, AWARE, directions, parking information, lodging, Internet access, dining and more. Information on [facility]: Please view [email or web address] (Patient and Visitor Information) for parking/directions and more. For MyChart information, to activate account or password recovery, please go to [email or web address] or call [phone] (toll-free: [phone]). Information for Suicide Prevention: National Suicide Prevention Lifeline (0-046-083-XXCJ (6951)). Surgery Times: For patients having surgery @ [facility] or [facility], if your surgeon's office has not notified you of your surgery time by NOON THE BUSINESS DAY BEFORE your surgery, please call [phone] and ask for your surgeon'soffice Dr. Khan. documented in this encounter Plan of Treatment Not on file documented as of this encounter Procedures Procedure Name Priority Date/Time Associated Diagnosis Comments SURGICAL PATHOLOGY Routine 05/17/2021 11 :15 AM CDT Elevated PSA TRANSPERINEAL EXACT VU GUIDED PROSTATE BIOPSY 05/17/2021 11:10 AM CDT Elevated PSA documented in this encounter Results * Surgical pathology (05/17/2021 11:15 AM CDT) Tissue (Prostate, Needle Biopsy) 05/17/2021 11:15 AM CDT Tissue (Prostate, Needle Biopsy) 05/17/2021 11:15 AM CDT Tissue (Prostate, Needle Biopsy) 05/17/2021 11:15 AM CDT Tissue (Prostate, Needle Biopsy) 05/17/2021 11:15 AM CDT Tissue (Prostate, Needle Biopsy) 05/17/2021 11:15 AM CDT Tissue (Prostate, Needle Biopsy) 05/17/2021 11:15 AM CDT Tissue (Prostate, Needle Biopsy) 05/17/2021 11:15 AM CDT Tissue (Prostate, Needle Biopsy) 05/17/2021 11:15 AM CDT Tissue (Prostate, Needle Biopsy) 05/17/2021 11:15 AM CDT Tissue (Prostate, Needle Biopsy) 05/17/2021 11:15 AM CDT Narrative PATHOLOGY [facility] - 05/20/2021 1:46 PM CDT EPIC results best viewed via link to PDF [facility] [place] [address] Note to Patients: This report may contain a detailed description of human tissue sent by a health care provider to the laboratory for pathologic evaluation. The content of this report is essential for diagnosis and may provide important critical findings. This information may be unfamiliar to patients to review without a medical professional present. It is advised that the patient review this report in the presence of a health care provider who can answer questions and explain the details. SURGICAL PATHOLOGY REPORT FINAL Patient Name: ?? JUSTIN SAMUELS Gender: ??M : ??1960 (Age: 60) Address: ??[address] [place] [address] [address], [place], [place] ??[address] Hospital #: ??[id number] Taken:05/17/2021 Received:05/17/2021 Reported: 05/20/2021 Patient Type: WC SDS Client ?[facility] Service: Surgery Location: [facility] Physician(s): ??Luther Garza, DO Diagnosis: A. ??Prostate, right posterior medial, needle biopsy ? - Benign prostatic tissue B. ??Prostate, right posterior lateral, needle biopsy ? - Benign prostatic tissue C. ??Prostate, right base, needle biopsy ? - Benign prostatic tissue D. ??Prostate right anterior medial, needle biopsy ? - Benign prostatic tissue with focal acute prostatitis E. ??Prostate, right anterior lateral, needle biopsy ? - Benign prostatic tissue F. ??Prostate, left posterior medial, needle biopsy ? - Benign prostatic tissue G. ??Prostate, left posterior lateral, needle biopsy ? - Benign prostatic tissue H. ??Prostate, left base, needle biopsy ? - Benign prostatic tissue I. ??Prostate, left anterior medial, needle biopsy ? - Benign prostatic tissue J. ??Prostate, left anterior lateral, needle biopsy ? - Benign prostatic tissue pxk/05/20/2021 12:18 By this signature, I attest that the above diagnosis is based upon my personal examination of the slides(and/or other material indicated in the diagnosis). Yumiko Yang M.D. Report Electronically Reviewed and Signed Out By ??Yumiko Yang M.D. 05/20/2021 13:46:09 Microscopic Description and Comment: Microscopic examination substantiates the above cited diagnosis. Microscopic slide review and interpretation for this case was performed at [facility], Department of Surgical Pathology, [address] [facility] [place], [place] [id number], ??[place], [place] ??[address] ?? [place] # [id number] Leni Cheung M.D. History: The patient is a 60-year-old man with a velvety PSA. ??Operative procedure: Transperineal exact view guided prostate biopsy. Specimen(s) Received: A: Right posterior medial B: Right posterior lateral C: Right base D: Right anterior lateral E: Right anterior lateral F: Left posterior medial G: Left posterior lateral H: Left base I: Left anterior medial J: Left anterior lateral Gross Description: The specimens are received in ten formalin filled containers each labeled with the patient's identifiers. ? A. ??Labeled right posterior medial. ??It holds three domínguez soft tissue cores ranging from 1.1 cm to 1.6 cm in length and each measuring 0.1 cm in diameter. ??Stained with hematoxylin. ??Labeled A1. ??Jar 0. B. ??Labeled right posterior lateral. ??It holds three domínguez soft tissue cores ranging from 1.3 cm to 1.7 cm in length and each measuring 0.1 cm in diameter. ??Stained with hematoxylin. ??Labeled B1. ??Jar 0. C. ??Labeled right base. ??It holds three domínguez soft tissue cores ranging from 1.4 cm to 1.6 cm in length and each measuring 0.1 cm in diameter. ??Stained hematoxylin. ??Labeled C1. ??Jar 0. D. ??Labeled right anterior medial. ??It holds three domínguez soft tissue cores ranging from 0.9 cm to 1.4 cm in length and each measuring 0.1 cm in diameter. ??Stained with hematoxylin. ??Labeled D1. ??Jar 0. E. ??Labeled right anterior lateral. ??It holds three domínguez soft tissue cores ranging from 0.9 cm to 1.3 cm in length and each measuring 0.1 cm in diameter. ??Stained with hematoxylin. ??Labeled E1. ??Jar 0. F. ??Labeled left posterior medial. ??It holds three domínguez soft tissue cores ranging from 1.3 cm to 1.6 cm in length and each measuring 0.1 cm in diameter. ??Stained with hematoxylin. ??Labeled F1. ??Jar 0. G. ??Labeled left posterior lateral. ??It holds three domínguez soft tissue cores ranging from 1.6 cm to 2.0 cm in length and each measuring 0.1 cm in diameter. ??Stained with hematoxylin. ??Labeled G1. ??Jar 0. H. ??Labeled left base. ??It holds three domínguez soft tissue cores ranging from 1.0 cm to 1.9 cm in length and each measuring 0.1 cm in diameter. ??Stained hematoxylin. ??Labeled H1. ??Jar 0. I. ??Labeled left anterior medial. ??It holds three domínguez soft tissue cores ranging from 0.8 cm to 1.7 cm in length and each measuring 0.1 cm in diameter. ??Stained with hematoxylin. ??Labeled I1. ??Jar 0. J. ??Labeled left anterior lateral. ??It holds three domínguez soft tissue cores ranging from 1.1 cm to 1.5 cm in length and each measuring 0.1 cm in diameter. ??Stained with hematoxylin. ??Labeled J1. ??Jar 0. [facility]05/17/2021 14:38 PA(s): BELEN Wiseman, [place] ([facility]) By this signature, I attest that the above diagnosis is based upon my personal examination of the slides(and/or other material). Addenda/Procedures The performance characteristics of some immunohistochemical stains, fluorescence in-situ hybridization tests and immunophenotyping by flow cytometry cited in this report (if any) were determined by the Surgical Pathology and Flow Cytometry Departments at [facility] as part of an ongoing housing quality standard inspector program and in compliance with federally mandated regulations drawn from the Clinical Laboratory Improvement Act of 1988 (CLIA '88). ??Some of these tests rely on the use of analyte specific reagents and are subject to specific labeling requirements by the US Food and Drug Administration. ??Such diagnostic tests may only be performed in a facility that is certified by the Department of Health and Human Services as a high complexity laboratory under CLIA '88. ??The FDA has determined that such clearance or approval is not necessary. ??This test is used for clinical purposes. ??It should not be regarded as investigational or for research. ??Nevertheless, federal rules concerning the medical use of analyte specific reagents require that the following disclaimer be attached to the report: This test was developed and its performance characteristics determined by the Surgical Pathology and Flow Cytometry Departments of [facility]. ??It has not been cleared or approved by the U. S. Food and Drug Administration. IMAGES AND SCANNED DOCUMENTS, IF INCLUDED, ONLY VIEWABLE IN PDF VERSION OF REPORT Inocencio Khan Jr., MD LAB PATHOLOGY ORDERAB LES Final Result PATHOLOGY [facility] [phone] documented in this encounter Visit Diagnoses Diagnosis Elevated PSA- Primary Elevated prostate specific antigen (PSA) Elevated PSA Elevated prostate specific antigen (PSA) documented in this encounter Admitting Diagnoses Diagnosis Elevated PSA Elevated prostate specific antigen (PSA) documented in this encounter Administered Medications Inactive Administered Medications - up to 3 most recent administrations Medication Order MAR Action Action Date Dose Rate Site acetaminophen (TYLENOL) tablet 500 mg 500 mg, oral, Every 6 hours PRN, headaches, other, Breakthrough Pain and Supplement to other pain meds, Starting on Thu05/17/21 at 1153, For 2 doses, Phase I, When able to tolerate PO after consulting with Anesthesiologist. Do not administer if patient has already received Acetaminophen-containing medications in PACU., Indications: PainIndications:Pain Given 05/17/2021 12:22 PM CDT 500 mg Lactated Ringer's (LR) infusion 30 mL/hr, intravenous, Continuous, Starting on Thu05/17/21 at 1000, For 4 hours, Pre-Op, Use a 500 ml bag for End Stage Renal Disease Patients. Discontinue if fluid still running once patient arrives to floor. New Bag 05/17/2021 11:34 AM CDT Rate/Dose Verify 05/17/2021 11:05 AM CDT 30 mL/ hr New Bag 05/17/2021 9:49 AM CDT 30 mL/hr 30 mL/hr scopolamine patch 72 hour 1 patch 1 patch, transdermal, Administer over 72 Hours, Every 72 hours, First dose on Thu05/17/21 at 1000, For 1 dose, Pre-Op, Apply to Dr. Roach's patients, as well as to beach-chair position shoulder surgery patients, and to patients with a history of PONV and/or Motion Sickness. Do NOT administer to patients with a history of BPH or Glaucoma. Consult Anesthesiologist with any questions. In case of Urinary Retention, remove patch immediately and clean patch site with Alcohol., Indications: Motion Sickness, Prevention of Motion Sickness, Prevention of Post-Operative Nausea and VomitingIndications:Motion Sickness,Prevention of Motion Sickness,Prevention of Post-Operative Nausea and Vomiting Medication Applied 05/17/2021 10:01 AM CDT 1 patch Behind Right Ear documented in this encounter Discontinued Medications Medication Sig Discontinue Reason Start Date End Da te tamsulosin (FLOMAX) 0.4 mg extended release capsule Take 1 capsule (0.4 mg total) by mouth daily for 1 dose Take 1 Tamsulosin tablet at bedtime the night before your procedure. 03/25/2021 05/09/2021 documented as of this encounter Historical Medications * This list may reflect changes made after this encounter. glucosamine HCl/chondroitin villa (GLUCOSAMINE-FRANCA DROITIN ORAL)Indications: supplement Take 1 capsule by mouth every morning LYSINE ORALIndications:s upplement Take 1 capsule by mouth every morning vitamin E acetate (VITAMIN E ORAL)Indications: supplement Take 1 capsule by mouth every morning multivitamin capsuleIndication s:Vitamin Deficiency Prevention Take 1 capsule by mouth every morning KRILL OIL ORALIndications:s upplement Take 1 capsule by mouth every morning CREATINE MONOHYDRATE ORALIndications:s upplement Take by mouth every morning Powder, mix in water testosterone cypionate (DEPO-TESTOTERONE ) 100 mg/mL injectionIndicati ons:Androgen Deficiency Inject 0.25 mL into the muscle as instructed 2 (two) times a week Wed, Sat. 04/13/2020 simvastatin (ZOCOR) 10 mg tabletIndications :hyperlipidemia Take 10 mg by mouth nightly 05/05/2021 sildenafiL (VIAGRA) 100 mg tablet Take 100 mg by mouth as needed for erectile dysfunction 03/13/2021 lisinopriL (PRINIVIL,ZESTRIL ) 10 mg tabletIndications :hypertension Take 10 mg by mouth every morning 05/05/2021 ibuprofen (ADVIL,MOTRIN) 400 mg tablet Take 400 mg by mouth as needed for pain 3 added in this encounter Active and Recently Administered Medications Times are shown in CDT. Scheduled Medication Order 05/15/2021 05/16/2021 05/17/2021 scopolamine patch 72 hour 1 patch 1 patch, transdermal, Administer over 72 Hours, Every 72 hours, First dose on Thu05/17/21 at 1000, For 1 dose, Pre-Op, Apply to Dr. Roach's patients, as well as to beach-chair position shoulder surgery patients, and to patients with a history of PONV and/or Motion Sickness. Do NOT administer to patients with a history of BPH or Glaucoma. Consult Anesthesiologist with any questions. In case of Urinary Retention, remove patch immediately and clean patch site with Alcohol., Indications: Motion Sickness, Prevention of Motion Sickness, Prevention of Post-Operative Nausea and Vomiting 1001 (Medication Ankur lied - Provider: Aura Martinez RN)[id number] (Due: Medication Removed - Provider: Automatic Discharge Provider - Comment: Time automatically adjusted from order being discontinued) Continuous Medication Order 05/15/2021 05/16/2021 05/17/2021 Lactated Ringer's (LR) infusion (CANCELED) 30 mL/hr, intravenous, Continuous, Starting on Thu05/17/21 at 1000, For 4 hours, Pre-Op, Use a 500 ml bag for End Stage Renal Disease Patients. Discontinue if fluid still running once patient arrives to floor. 0949 (New Bag - Prov ider: Aura Martinez RN)1105 (Rate/Dose Verify - Provider: Lara Webb CRNA)1133 (Paused - Provider: Lara Webb CRNA - Comment: Switch to gravity)1134 (New Bag - Provider: Lara Webb CRNA) Lactated Ringer's (LR) infusion 125 mL/hr, intravenous, Continuous, Starting on Thu05/17/21 at 1230, For 4 hours, Phase I, Discontinue upon discharge from PACU to the floor. 1230 (Due) PRN Medication Order 05/15/2021 05/16/2021 05/17/2021 acetaminophen (TYLENOL) tablet 500 mg 500 mg, oral, Every 6 hours PRN, headaches, other, Breakthrough Pain and Supplement to other pain meds, Starting on Thu05/17/21 at 1153, For 2 doses, Phase I, When able to tolerate PO after consulting with Anesthesiologist. Do not administer if patient has already received Acetaminophen-containing medications in PACU., Indications: Pain 1222 (Given - Provid er: Marion Hunt RN) diphenhydrAMINE (BENADRYL) injection 12.5 mg 12.5 mg, intravenous, Administer over 1 Minutes, Every 5 min PRN, itching, other, For Nausea, administer 25 mg IV., Starting on Thu05/17/21 at 1153, For 4 doses, Phase I, Max cumulative dose 50 mg., Indications: Itching fentaNYL (SUBLIMAZE) preservative free injection 25 mcg 25 mcg, intravenous, Every 5 min PRN, 2nd line for pain, Use Fentanyl as 1st line medication for extremely severe pain for outpatients, and follow with oral pain medication., Starting on Thu05/17/21 at 1153, For 4 doses, Phase I, Use as 1st line for outpatients, dose not to exceed 100 mics. If pain still extremely severe after 100 mics of Fentanyl, may proceed to Dilaudid after consulting with Anesthesiologist. If patient able to tolerate PO meds and pain improved after Fentanyl, proceed to Oral pain medication., Indications: Pain hydrALAZINE (APRESOLINE) injection 5 mg 5 mg, intravenous, Administer over 2 Minutes, Every 5 min PRN, high blood pressure, Starting on Thu05/17/21 at 1153, Phase I, Max cumulative dose 20 mg. Dose if systolic BP greater than 180 AND heart rate less than 70., Indications: hypertension HYDROcodone-acetaminophen (NORCO) 5-325 mg per tablet 1 tablet 1 tablet, oral, Every 20 min PRN, 3rd line for pain, breakthrough pain, May use as 1st line pain medication if pain not extremely severe and patient able to tolerate PO meds. If unable to tolerate PO meds or outpatient complaining of extremely severe pain, start with Fentanyl and follow with Oral meds., Starting on Thu05/17/21 at 1153, For 2 doses, Phase I, May administer TWO pills together if pain moderate to severe and patient able to tolerate PO meds, after consulting with Anesthesiologist., Indications: Pain HYDROmorphone (DILAUDID) injection 0.2 mg 0.2 mg, intravenous, Administer over 2 Minutes, Every 5 min PRN, 1st line for pain, Use as 1st line pain med for inpatients or for patients with extremely severe pain., Starting on Thu05/17/21 at 1153, Phase I, Use as first line pain medication for inpatients. May use as first line medication for outpatients with extremely severe pain, history of opioid tolerance, or history of Chronic Pain with opioid tolerance, after consulting with Anesthesiologist. Inform anesthesiologist when dose reaches 2 mg for inpatients or 1 mg for outpatients., Indications: Chronic Pain with Opioid Tolerance, Pain, Severe Pain with Opioid Tolerance labetaloL (NORMODYNE,TRANDATE) injection 5 mg 5 mg, intravenous, Every 5 min PRN, high blood pressure, Starting on Thu05/17/21 at 1153, For 4 doses, Phase I, Max cumulative dose 20 mg. Dose if systolic blood pressure greater than 180 AND HR greater than 70. meperidine (DEMEROL) preservative free injection 12.5 mg 12.5 mg, intravenous, Administer over 5 Minutes, Every 10 min PRN, shivering, Starting on Thu05/17/21 at 1153, For 2 doses, Phase I, Max cumulative dose 25 mg., Indications: Shivering naloxone (NARCAN) 0.4 mg/mL injection 0.04-0.4 mg 0.04-0.4 mg, intravenous, Once as needed, other, excessive sedation/respiratory depression, Starting on Thu05/17/21 at 1153, For 1 dose, Phase I, Dilute 0.4 mg with 9 mL NS (final concentration 0.04 mg/mL). For respiratory depression (respiratory rate less than 6), administer 0.4 mg IVP over 30 seconds. For excessive sedation administer 0.04 mg (1 mL) every 1 minute until desired level of alertness. Consult with Anesthesiologist before administration. Administer 40 mics at a time. For IV, administer over 30 seconds., Indications: Opioid Toxicity ondansetron (ZOFRAN) injection 4 mg 4 mg, intravenous, Administer over 2 Minutes, Once as needed, nausea, vomiting, Starting on Thu05/17/21 at 1153, For 1 dose, Phase I, Proceed to prochlorperazine if ondansetron has been given within the last 6 hours. prochlorperazine (COMPAZINE) injection 5 mg 5 mg, intravenous, Every 10 min PRN, nausea, vomiting, Check with Anesthesiologist before administring, and ask about IV versus IM., Starting on Thu05/17/21 at 1153, For 2 doses, Phase I, If nausea/vomiting not relieved by ondansetron within 30 minutes or if ondansetron has been given within the last 6 hours. documented in this encounter Orders Medications Ordered That Froylan ht Not Have Been Administered Count Last Ordered Date First Ordered Date diphenhydrAMINE (BENADRYL) i njection 12.5 mg 1 05/17/2021 famotidine (PEPCID) injection 20 mg 1 05/17 fentaNYL (SUBLIMAZE) preserv ative free injection 25 mcg 1 05/17/2021 hydrALAZINE (APRESOLINE) injection 5 mg 1 0 05/17/2021 HYDROcodone-acetaminophen (N ORCO) 5-325 mg per tablet 1 tablet 1 05/17/2021 HYDROmorphone (DILAUDID) injection 0.2 mg 1 05/17/2021 labetaloL (NORMODYNE,TRANDAT E) injection 5 mg 1 05/17/2021 Lactated Ringer's (LR) infusion 1 meperidine (DEMEROL) preserv ative free injection 12.5 mg 1 05/17/2021 naloxone (NARCAN) 0.4 mg/mL injection 0.04-0.4 mg 1 05/17/2021 ondansetron (ZOFRAN) injection 4 mg 1 05/17 prochlorperazine (COMPAZINE) injection 5 mg 1 05/17/2021 sodium chloride 0.9% flush 0.5-20 mL 1 05/01 Diet Count Last Ordered Date First Orde red Date ADULT DISCHARGE DIET 1 05/17/2021 Nursing Count Last Ordered Date First Orde red Date DISCHARGE ACTIVITY 1 05/17/2021 DISCHARGE CALL PROVIDER 8 05/17/2021 FOLLOW UP WITH ESTABLISHED PROVIDER 1 05/17 documented in this encounter Care Teams Printing Estimator Relationship Specialty Start Date End Date Maia Real DO PCP - General Family Medicine 02/15/21 Inocencio Khan Jr., MD Consulting Physician Urology 05/17/21 documented as of this encounter
--- OUTSIDE RECORDS SUMMARY | 2024-09-11 14:27 | XMS_ITS | Clinical Summary ---
Author Organization [facility] Address [address] [place] [address] Care Team Providers Care Engraver Ornamental Design Name Role Phone Maia Real DO Primary Care Provider [phone]- [phone] Bill Lauren MD, [facility]. Unavailable Allergies No known active allergies Medications lisinopriL (PRINIVIL,ZESTRI L) 10 mg tabletIndication s:hypertension Take 10 mg by mouth every morning 1 Active sildenafiL (VIAGRA) 100 mg tablet Take 100 mg by mouth as needed for erectile dysfunction 1 Active simvastatin (ZOCOR) 10 mg tabletIndication s:hyperlipidemia Take 10 mg by mouth nightly 1 Active testosterone cypionate (DEPO-TESTOTERON E) 100 mg/mL injectionIndicat ions:Androgen Deficiency Inject 0.25 mL into the muscle as instructed 2 (two) times a week Thu, Sat. 0 Active CREATINE MONOHYDRATE ORALIndications: supplement Take by mouth every morning Powder, mix in water Active KRILL OIL ORALIndications: supplement Take 1 capsule by mouth every morning Active multivitamin capsuleIndicatio ns:Vitamin Deficiency Prevention Take 1 capsule by mouth every morning Active vitamin E acetate (VITAMIN E ORAL)Indications :supplement Take 1 capsule by mouth every morning Active LYSINE ORALIndications: supplement Take 1 capsule by mouth every morning Active glucosamine HCl/chondroitin villa (GLUCOSAMINE-CHO NDROITIN ORAL)Indications :supplement Take 1 capsule by mouth every morning Active Active Problems Problem Noted Date Diagnosed Date Elevated PSA 03/25/2021 Overview (03/25/2021): Added automatically from request for surgery [id number] Immunizations Name Administration Dates Next Due Pfizer SARS-CoV-2 Monovalent Vaccination (12+ Yrs) PURPLE 12/11/2020,11/20/2020 Surgical History Surgery Date Site/Laterality Comments SKIN CANCER EXCISION 08/31/2013 - 08/30/2014 back HERNIA REPAIR 08/31/1987 - 08/30/1988 APPENDECTOMY 08/31/1969 - 08/30/1970 COLONOSCOPY 08/31/2010 - 08/30/2011 Medical History Medical History Date Comments Hypertension Social History Tobacco Use Types Packs/Day Years [...] Orientation Straight 02/19/2021 7: 19 AM CDT Obstetrics History Last Filed Vital Signs Vital Sign Reading Time Taken Comments Blood Pressure 133/89 05/17/2021 12:20 PM CDT Pulse 79 05/17/2021 12:20 PM CDT Temperature 36.1 ??C (97 ??F) 05/17/2021 12:20 PM CDT Respiratory Rate 23 05/17/2021 12:20 PM CDT Oxygen Saturation 95% 05/17/2021 12:20 PM CDT Inhaled Oxygen Concentration - - Weight 99.2 kg (218 lb 9.6 oz) 05/17/2021 9:20 A M CDT Height 180.3 cm (5' 11 ) 05/17/2021 9:20 AM CDT Body Mass Index 30.49 05/17/2021 9:20 AM CDT Plan of Treatment Health Maintenance Due Date Last Done Comments Colon Cancer Screening-Colonoscopy 1961 Depression Screening 1961 Hepatitis C Screening 1961 Hepatitis B Screening 1979 Regular Well Visit/Exam 18-64 1979 Zoster Vaccine (1 of 2) 2011 Prostate Cancer Screening-PSA 04/02/2023 04/02/2021 Covid-19 Vaccine (3 - 2023-2 5 season) 2024 12/11/2020, 11/20/2020 Influenza Vaccine (#1) 2024 DTaP/Tdap/Td Vaccine (2 - Td or Tdap) 04/15/2031 04/15/2021 Pneumococcal vaccine <65 Aged Out No longer eligible based on patient's age to complete this topic Procedures Procedure Name Priority Date/Time Associated Diagnosis Comments PSA DIAGNOSTIC Routine 04/02/2021 3:09 PM CDT Elevated PSA from Last 3 Months or Most Recently Relevant to Health Maintenance Results * (ABNORMAL) PSA diagnostic (04/02/2021 3:09 PM CDT) PSA 4.6(H) 0.0 - 4.0 ng/mL [facility] - Comment: Doc ECLIA methodology. According to the [employer], Serum PSA should decrease and remain at undetectable levels after radical prostatectomy. The AUA defines biochemical recurrence as an initial PSA value 0.2 ng/mL or greater followed by a subsequent confirmatory PSA value 0.2 ng/mL or greater. Values obtained with different assay methods or kits cannot be used interchangeably. Results cannot be interpreted as absolute evidence of the presence or absence of malignant disease. Blood specimen (specimen) 04/02/2021 3:09 PM CDT 04/02/2021 Narrative [facility] - 04/03/2021 4:10 PM CDT Performed at: ??01 - [facility] [address] ??[id number] Paper Machine Supervisor: Velasquez Donald PhD, Phone: ??[phone] Inocencio Khan Jr., MD LAB BLOOD ORDERABLES Final Result [facility] - 01 from Last 3 Months or Most Recently Relevant to Health Maintenance Insurance [employer] [address] CHOICE PLUS Care Teams Engraver Ornamental Design Relationship Specialty Start Date End Date VernaceMaia DO PCP - General Family Medicine 02/15/21 Inocencio Khan Jr., MD Consulting Physician Urology 05/17/21
--- OUTSIDE RECORDS SUMMARY | 2024-09-11 14:27 | XMS_ITS | Encounter Summary ---
Author Organization [facility] Address [address] [place] [address] Phone Care Team Providers Care Software Tools Developer Name Role Phone Maia Real DO Primary Care Provider [phone]- [phone] Encounter Details Date Type Department Care Team (Late st Contact Info) Description 03/25/2021 Orders Only [facility] Urology [address] [facility] [address] [place] [id number] AndInocencio berger Jr., MD [address] [facility] [address] [place] [address] Social History Tobacco Use Types Packs/Day Years Used Date Smoking Tobacco: Never Assessed Sex and Gender Information Value Date Recorded Sex Assigned at Not on file Legal Sex Male 1:35 PM CDT Gender Identity Not on file Sexual Orientation Straight 02/19/2021 7: 19 AM CDT documented as of this encounter Ordered Prescriptions Prescription Sig Dispense Quantity Refills Last Filled Start Date End Date tamsulosin (FLOMAX) 0.4 mg extended release capsule Take 1 capsule (0.4 mg total) by mouth daily for 1 dose Take 1 Tamsulosin tablet at bedtime the night before your procedure. 1 capsule 03/25/2021 documented in this encounter Plan of Treatment Not on file documented as of this encounter Visit Diagnoses Not on filedocumented in this encounter Discontinued Medications Medication Sig Discontinue Reason Start Date End Da te tamsulosin (FLOMAX) 0.4 mg extended release capsule Take 1 capsule (0.4 mg total) by mouth daily for 1 dose Take 1 Tamsulosin tablet at bedtime the night before your procedure. 03/22/2021 03/25/2021 documented as of this encounter Care Teams Software Tools Developer Relationship Specialty Start Date End Date Maia Real DO PCP - General Family Medicine 02/15/21 documented as of this encounter
--- OUTSIDE RECORDS SUMMARY | 2024-09-11 14:27 | XMS_ITS | Encounter Summary ---
Author Organization [facility] Address [address] [place] [address] Phone Care Team Providers Care Vibrator Equipment Tester Name Role Phone Maia Real DO Primary Care Provider [phone]- [phone] Encounter Details Date Type Department Care Team (Late st Contact Info) Description 03/25/2021 Orders Only [facility] Urology [address] [facility] [address] [place] [id number] AndInocencio berger Jr., MD [address] [facility] [address] [place] [address] Disorder of prostate, unspecified (Primary Dx) Social History Tobacco Use Types Packs/Day Years Used Date Smoking Tobacco: Never Assessed Sex and Gender Information Value Date Recorded Sex Assigned at Not on file Legal Sex Male 1:35 PM CDT Gender Identity Not on file Sexual Orientation Straight 02/19/2021 7: 19 AM CDT documented as of this encounter Plan of Treatment Not on file documented as of this encounter Procedures Procedure Name Priority Date/Time Associated Diagnosis Comments URINE CULTURE Routine 05/09/2021 4:22 PM CDT Disorder of prostate, unspecified documented in this encounter Results * Urine culture Urine, bladder (05/09/2021 4:22 PM CDT) Urine culture Final report [facility] - 01 Result 1 No growth [facility] - 01 Urine, bladder 05/09/2021 4: 22 PM CDT 05/09/2021 Comment:UR TURE RESULT A Narrative [facility] - 05/11/2021 4:07 AM CDT Performed at: ??01 - [facility] [address] ??[id number] Electric Motor Repair Supervisor: Velasquez Donald PhD, Phone: ??[phone] Inocencio Khan Jr., MD LAB MICROBIOLOGY - NERAL ORDERABLES Final Result [facility] - 01 documented in this encounter Visit Diagnoses Diagnosis Disorder of prostate, unspecified- Primary documented in this encounter Care Teams Vibrator Equipment Tester Relationship Specialty Start Date End Date Maia Real DO PCP - General Family Medicine 02/15/21 documented as of this encounter
--- OUTSIDE RECORDS SUMMARY | 2024-09-11 14:27 | XMS_ITS | Encounter Summary ---
Author Organization [facility] Healthcare Address [address] [place] [address] Care Team Providers Care President And Chief Operating Officer Name Role Phone Maia Real DO Primary Care Provider [phone]- [phone] Bill Lauren MD, Inocencio Stein [phone] Encounter Details Date Type Department Care Team (Latest Contact Info) Description 05/17/2021 8:46 AM CDT - 05/17/2021 12:44 PM CDT Hospital Encounter [facility] Operating Room [address] [place] [address] Inocencio Khan Jr., MD [address] [facility] [address] [place] [address] Elevated PSA Discharge Disposition: Discharge to home or self care Social History Tobacco Use Types Packs/Day Years [...] AM CDT documented in this encounter Discharge Diagnoses Diagnosis Acute prostatitis - ACUTE PROSTATITIS Essential (primary) hypertension - ESSENTIAL (PRIMARY) HYPERTENSION Unspecified essential hypertension Personal history of other malignant neoplasm of skin - PERSONAL HISTORY OF OTHER MALIGNANT NEOPLASM OF SKIN Obesity, unspecified - OBESITY, UNSPECIFIED Body mass index (BMI)30.0-30.9, adult - BODY MASS INDEX [BMI] 30.0-30.9, ADULT documented in this encounter Discharge Instructions * Discharge Instructions* Itzel Bah MD - 05/17/2021 10:05 AM CDT Discharge Instructions: Surgery performed: Transperineal prostate biopsy New medications: - Acetaminophen and ibuprofen as needed for pain; take this scheduled for the next 72 hours, then afterwards as needed - Docusate/miralax as needed for constipation, available [id number] Pain Control: - Start by applying ice [...] and throwing them in the trash. Diet: [place] diet: At first eat a bland diet; [...] Thursday, 8 AM to 5:00 PM, call [phone] and ask for a member of your doctor's team. For urgent matters, after 5:00 PM during the week, on weekends and holidays, call [phone] and ask to have the Urology Farmworker Field Crop Physician paged for you. Follow up: Your [...] 2 (two) times a week Thu, Sat. 04/13/2020 vitamin E acetate (VITAMIN E [...] Preoperative Evaluation Record Evaluation type/location: TPAP from [facility] Planned procedure site: [facility] OR Date: 05/10/21 NOTE: This note represents [...] Cardiovascular + Hypertension Pertinent negatives: CAD ; IN ; CABG ; valvular heart disease; valve [...] Patient instructions were provided electronically sent via [facility]. Patient verbalized understanding of preoperative plan. Blood [...] COVID19 testing to be performed on 05/13/21. [facility] will place the order for testing. Result [...] Medication protocol when under care of a FALL INTERN Planned anesthesia: General/TIVA Induction: Induction: intravenous. Postoperative Plan: Postoperative administration opioids intended. No postoperative mechanical ventilation intended. Informed Consent: Discussed plan with FALL INTERN. Anesthesia plan and risks discussed with patient. [...] Preoperative Evaluation Record Evaluation type/location: TPAP from [facility] Planned procedure site: [facility] OR Date: 05/10/21 NOTE: This note represents [...] Cardiovascular + Hypertension Pertinent negatives: CAD ; IN ; CABG ; valvular heart disease; valve [...] Patient instructions were provided electronically sent via [facility]. Patient verbalized understanding of preoperative plan. Blood [...] COVID19 testing to be performed on 05/13/21. [facility] will place the order for testing. Result [...] were no vitals filed for this visit. Rdige index score: 100 documented in this encounter Miscellaneous Notes * Op Note - Inocencio Khan Jr., MD - 05/17/2021 11:00 AM CDT Surgeon: Inocencio Khan MD Full Stack Web Developer: DR Alberto INDICATIONS The patient has elevated [...] Preoperative Assessment and Planning CPAP Clinic Location: [facility] The night before your surgery: [...] your family. * If having surgery at [facility], you may want to bring a credit card if you want to use our Mobile Pharmacy for your discharge medications. Mobile pharmacy is not available at [facility], the [facility], or the [place] for [facility]. Outpatient Surgery: * You must have a [...] Holder RN - 05/09/2021 2:41 PM CDT [place] for Preoperative Assessment and Planning Perioperative Nursing Note Telephone Preoperative Evaluation ([facility]) - TELEPHONE ONLY, NO PHYSICAL EXAM [...] not in Chart: Copy requested from family Communication/Putty Tinter Maker Needs Communication Needs: Glasses Patient's Preferred Language: Maori Does caregiver's language differ from patient's?: No Is an language interpreter needed? : No Assistive Devices/DME: Eyeglasses Hearing - Right Ear: Functional Hearing - Left Ear: Functional Discharge Planning Type of Residence: Private residence Living Arrangements: Spouse/significant other Support Systems: Spouse/significant other Patient expects to be discharged to:: Private residence (Taryn will be local company hazmat driver after surgery.) COVID Screening Covid-19 Screening [...] in a congregate living facility (ex. assisted living/[place] health care facility facility, long-term, assisted)?: No Have you tested positive for COVID-19 [...] 20 seconds. Use an alcohol- based hand data reviewer that contains at least 60% alcohol if [...] insurance card, a photo ID (like a Appointment Clerk's license) and a method of payment for [...] further testing. COVID Test Request Placed in [facility] to [facility]. HOLIDAY hours may vary at testing site. Test to be performed on 05/13/[address] [address], M-F 8a-7:30p, Sat/Sun 8a-7:30p. Telephone assessment performed. Patient states that they are fully COVID vaccinated and COVID vaccination information verified through [facility] Immunization Registry Database. If you have COVID testing or should have COVID testing for your surgery/procedure, please read below section: If you need to reschedule your COVID test to a different location or if your surgery gets rescheduled, you MUST call [phone] Thursday-Thursday 8am-4:30pm to get your COVID testing rescheduled or your lab order will not be available at Testing Sites. COVID Testing is only valid for up to 96 hours prior to surgery date, unless otherwise specified. If you are unable to reach staff at the above phone number, please call the CPAP Staff at [phone]. This number cannot order a lab test, [...] 20 seconds. Use an alcohol- based hand data reviewer that contains at least 60% alcohol if soap and water are not available. All patients should read below section: All visitors/patients are being asked to wear a clean mask when entering the hospital. COVID 19 Updates & Visitor Policy: Please access [email or web address] for the most updated information. Information on [facility]: Please view [email or web address] (Patient & Visitor Information) for additional details regarding Advanced Directive forms, AWARE, directions, parking information, lodging, Internet access, dining and more. Information on [facility]: Please view [email or web address] (Patient and Visitor Information) for parking/directions and more. For MyChart information, to activate account or password recovery, please go to [email or web address] or call [phone] (toll-free: [phone]). Information for Suicide Prevention: National Suicide Prevention Lifeline (6-019-828-CPZN (3027)). Surgery Times: For patients having surgery @ [facility], [facility] or [facility], if your surgeon's office has not notified you of your surgery time by NOON THE BUSINESS DAY BEFORE your surgery, please call [phone] and ask for your surgeon'soffice Dr. Khan. [...] Biopsy) 05/17/2021 11:15 AM CDT Narrative PATHOLOGY [facility] - 05/20/2021 1:46 PM CDT EPIC results best viewed via link to PDF [facility] [place] [address] Note to Patients: This report may contain [...] Gender: ??M : ??1960 (Age: 60) Address: [address] [place], [place] ??[address] Hospital #: ??[id number] Taken:05/17/2021 Received:05/17/2021 Reported: 05/20/2021 Patient Type: WC SDS Client ?[facility] Service: Surgery Location: [facility] Physician(s): ??Luther Garza, DO Diagnosis: A. ??Prostate, [...] interpretation for this case was performed at [facility], Department of Surgical Pathology, [address] [facility] [place], [place] [id number], ??[place], [place] ??[address] ?? CLIA # [id number] Leni Cheung M.D. History: The patient is [...] ??Stained with hematoxylin. ??Labeled J1. ??Jar 0. [facility]/05/17/2021 14:38 PA(s): BELEN Wiseman, CT (ASCP) By this signature, I attest that the above diagnosis is based upon my personal examination of the slides(and/or other material). Addenda/Procedures The performance characteristics of some immunohistochemical stains, fluorescence in-situ hybridization tests and immunophenotyping by flow cytometry cited in this report (if any) were determined by the Surgical Pathology and Flow Cytometry Departments at [facility] as part of an ongoing customer quality specialist program and in compliance with federally mandated [...] Surgical Pathology and Flow Cytometry Departments of [facility]. ??It has not been cleared or approved by the U. S. Food and Drug Administration. IMAGES AND SCANNED DOCUMENTS, IF INCLUDED, ONLY VIEWABLE IN PDF VERSION OF REPORT Inocencio Khan Jr., MD LAB PATHOLOGY ORDERAB LES Final Result PATHOLOGY [facility] [phone] documented in this encounter Visit Diagnoses Diagnosis Elevated PSA- Primary Elevated prostate specific antigen (PSA) documented in [...] 05/17 documented in this encounter Care Teams President And Chief Operating Officer Relationship Specialty Start Date End Date Maia Real DO PCP - General Family Medicine 02/15/21 Inocencio Khan Jr., MD Consulting Physician Urology 05/17/21 documented as of this encounter
--- OUTSIDE RECORDS SUMMARY | 2024-09-11 14:27 | XMS_ITS | Encounter Summary ---
Author Organization [facility] Address [address] [place] [address] Care Team Providers Care Laborer Concrete Paving Name Role Phone Maia Real DO Primary Care Provider [phone]- [phone] Encounter Details Date Type Department Care Team (Late st Contact Info) Description 05/13/2021 Orders Only [facility] Testing Site - [facility]. Building [address] [place] [address] [address] [place] [address] Inocencio Khan Jr., MD [address] [facility] [address] [place] [address] Preop testing (Primary Dx) Social History Tobacco Use Types Packs/Day Years Used Date Smoking Tobacco: Never Smokeless Tobacco: Never AUDIT-C Answer Date Recorded Q1: How often do you have a drink containing alc ohol? 2-3 times a week 05/09/2021 Q2: How many drinks containi ng alcohol do you have on a typical day when you are drinking? 1 or 2 05/09/2021 Q3: How often do you have si x or more drinks on one occasion? Monthly 05/09/2021 Sex and Gender Information Value Date Recorded Sex Assigned at Not on file Legal Sex Male 1:35 PM CDT Gender Identity Not on file Sexual Orientation Straight 02/19/2021 7: 19 AM CDT documented as of this encounter Progress Notes * Chrissy Stewart - 05/13/2021 9:38 AM CDT Order Specific Questions Question Answer Comment Testing types: Pre-procedure ?? Date of Px/chemo/treatment/placement/transfer 05/17/2021 ?? Testing site patient will be sent to: [facility] ?? Date testing requested: 05/13/2021 ?? Testing: COVID-19 RNA ?? Is this the first COVID-19 test for this patient? Unknown ?? Does the patient currently work in a healthcare facility with direct patient contact? No ?? Is the patient a resident of a congregate care or living setting? No ?? Is the patient ? No ?? Please select the performing region: [facility] documented in this encounter Plan of Treatment Not on file documented as of this encounter Results * COVID-19 Coronavirus RNA Nasopharyngeal (05/13/2021 4:36 PM CDT) COVID-19 RNA Not Detected [facility] Comment: Interpretive Data Synonyms for this test include: PCR and NAAT . ??Testing performed by the [facility] Infectious Disease Laboratory. The 2019-Novel Coronavirus Assay (COVID-19) Real Time RT-PCR assay is for in vitro diagnostic use under FDA emergency use authorization only. A negative RT-PCR result does not preclude infection with COVID-19 and should not be used as the sole basis for treatment or other patient management decisions. ??Additional sample types have been validated according to CLIA regulations. ?? Current Interpretive Data was last revised on October 04, 2020. Testing performed by: [facility], [address] [place]., [address] First COVID-19 test? Unknown [facility] Comment:Testing performed by : [facility], [address] [place]., [address] Employeed in healthcare? No [facility] Comment:Testing performed by : [facility], [address] [place]., [address] status? No [facility] Comment:Testing performed by : [facility], [address] [place] [address] Group care resident? No [facility] Comment:Testing performed by : [facility], [address] [place]., [address] Hospitalized? Unknown OLU Comment:Testing performed by : [facility], [address] [place]., [address] Is patient in ICU? Unknown OLU Comment:Testing performed by : [facility], [address] [place]., [address] Symptomatic as defined by CDC? No O[facility] Comment:Testing performed by : [facility], [address] [place]., [address] Nasopharyngeal 05/13/2021 4: 36 PM CDT 05/14/2021 1:01 AM CDT Narrative [facility] - 05/14/2021 9:16 AM CDT What is the reason for testing?->Screening prior to scheduled procedure or surgery (batch) Inocencio Khan Jr., MD LAB MICROBIOLOGY - [facility] ORDERABLES Final Result [facility] [address] Department [place] [address] documented in this encounter Visit Diagnoses Diagnosis Preop testing- Primary Unspecified pre-operative examination Preop testing Unspecified pre-operative examination documented in this encounter Care Teams Laborer Concrete Paving Relationship Specialty Start Date End Date Maia Real DO PCP - General Family Medicine 02/15/21 documented as of this encounter
--- OUTSIDE RECORDS SUMMARY | 2024-09-11 14:27 | XMS_ITS | Encounter Summary ---
Author Organization [facility] Address [address] [facility] [address] [place] [address] Phone Care Team Providers Care Master Control Supervisor Name Role Phone Maia Real DO Primary Care Provider +1- [phone] Bill Lauren MD, Inocencio [place] Unavailable +1- [phone] Reason for Visit * Reason Comments Prostate Cancer * Consultation (Routine) - Closed Specialty Diagnoses / Procedures Referred By Christa t Referred To Contact Urology Diagnoses Elevated PSA Maia Real DO Phone: tel: fax: [facility] (All Locations) Referral ID Status Reason Start Date Expiration Date V isits Requested Visits Authorized [id number] Closed Specialty Services Required 10/16/2022 11/15/2023 99 99 Encounter Details Date Type Department Care Team (Late st Contact Info) Description 11/14/2022 3:20 PM CDT Office Visit [facility] - [facility] Urology [address] [facility] 11th [place] [address] [place] [address] Mukul Luciano MD [address] [facility] [place] [address] Elevated PSA Social History Tobacco Use Types Packs/Day Years [...] as of this encounter Progress Notes * Mukul Luciano MD - 11/14/2022 3:20 PM CDT Chief Complaint: Follow-up for history of elevated PSA History of Present Illness: Eileen Mccloud is a 62 y.o. male with a history of elevated PSA of a previously as high as 5.7. He is had prior MRI of the prostate demonstrating this 67 cc gland with no high-risk lesions. He also had a transperineal exact view ultrasound- guided biopsy with Dr. Khan in 2020 which was negative. Heis had his PSA checked every 6 months as part of monitoring for his testosterone therapy for hypogonadism. Most recent pain PSA was 5.07 which was down from 5.7 before. He has minimal lower urinary tract symptoms and denies having any bother. He and I will continue to follow up PSA every 6 months for monitoring. The patient's past medical, surgical, medication, allergy, family, and social histories were reviewed and are unchanged except as stated above in the HPI above. Objective: Physical Exam Gen: Well appearing male in no distress Neuro: Alert, conversation appropriate and does not require redirection Skin: No rashes or lesions of exposed skin Head: normocephalic Ears: Hearing normal Pulm: Respirations non-labored. Abdomen: Soft. Non-tender. Non-distended. MSK: Ambulates without assistance. Moves all 4 extremities. Labs: The following lab results were personally reviewed by me: Lab Results Component Value Date PSA 4.6 (H) 04/02/2021 Radiology: The following images were independently reviewed by me. MRI Pelvis Prostate W WO Contrast Narrative: EXAMINATION: MAGNETIC RESONANCE IMAGING OF THE PELVIS WITHOUT AND WITH CONTRAST HISTORY: 60-year-old male with hypogonadism on testosterone supplementation with rising PSA. Per report, and 2019 is present with 2.5 and more recently 3.99. TECHNIQUE: MR imaging of the prostate gland was performed with a torso phased array coil at 3T prior to and following administration of intravenous gadolinium. Protocol: Prostate 3T Contrast: Dotarem 20 mL COMPARISON: No prior magnetic resonance imaging is available for comparison. FINDINGS: Prostate volume: 67.55 cc The prostate transition zone is enlarged with benign prostatic hyperplasia. The prostate was assessed using the PI-RADS version 2.1 scoring system. There are no suspicious lesions in the prostate (PI-RADS 3 or greater). There is ill-defined T2 hypointensity in both right and left peripheral zones which could represent sequelae of prior prostatitis. Staging Information: No enlarged lymph nodes are identified. No suspicious osseous lesions are identified. Impression: 1. Findings of benign prostatic hyperplasia with no suspicious lesions (PI-RADS 3 or greater) in the prostate. Dictated by: Micheal Henriquez M.D. The radiology attending physician has personally reviewed this study, and had reviewed and/or edited this written report and agrees with it. Electronically signed by: Tyler Mirza M.D. No results found. Pathology: Patient Name: EILEEN MCCLOUD Gender: M : 1960 (Age: 60) Address: [address] [place] [address] Hospital #: [id number] Taken:05/17/2021 Received:05/17/2021 Reported: 05/20/2021 Patient Type: [facility] Client [facility] Service: Surgery Location: [facility] Physician(s): Luther Garza DO Diagnosis: A. Prostate, right posterior medial, needle biopsy - Benign prostatic tissue B. Prostate, right posterior lateral, needle biopsy - Benign prostatic tissue C. Prostate, right base, needle biopsy - Benign prostatic tissue D. Prostate right anterior medial, needle biopsy - Benign prostatic tissue with focal acute prostatitis E. Prostate, right anterior lateral, needle biopsy - Benign prostatic tissue F. Prostate, left posterior medial, needle biopsy - Benign prostatic tissue G. Prostate, left posterior lateral, needle biopsy - Benign prostatic tissue H. Prostate, left base, needle biopsy - Benign prostatic tissue I. Prostate, left anterior medial, needle biopsy - Benign prostatic tissue J. Prostate, left anterior lateral, needle biopsy - Benign prostatic tissue Medical Complexity and Decision Making: My total encounter time today was 21 minutes, which includes time spent today on pre charting, the patient encounter, and post charting. This includes time spent prior to the visit and after the visit in direct care of this patient. This time does not include time spent in any separately reportableservices. The majority of this time was spent in counseling and coordinating care related to his his tory of elevated PSA Assessment/Plan: Eileen Mcclodu is a 62 y.o. male with the following diagnoses: (R97.20) Elevated PSA Mr. Mccloud continues to do well. He has minimal lower urinary tract symptoms. His most recent PSA was 5.07 which is actually down from prior level of 5.7 while on testosterone. He and I discussed options for management and he wishes to repeat a PSA every 6 months and we mutually agreed that if his PSA rises above 6 we will plan a repeat MRI of the prostate to assess for newhighest risk lesions. Return to clinic in 1 year Mukul Luciano MD Urologic Surgical Oncologist Division of Urologic Surgery [facility] [place] documented in this encounter Plan of Treatment Not on file documented as of this encounter Visit Diagnoses Diagnosis Elevated PSA Elevated prostate specific antigen (PSA) documented in this encounter Discontinued Medications Medication Sig Discontinue Reason Start Date End Da te ibuprofen (ADVIL,MOTRIN) 400 mg tablet Take 400 mg by mouth as needed for pain Therapy completed 11/14/2022 documented as of this encounter Orders Outpatient Referral Count Last Ordered Date Fir st Ordered Date AMB REFERRAL TO UROLOGY 1 11/14/2022 documented in this encounter Care Teams Master Control Supervisor Relationship Specialty Start Date End Date Maia Real DO PCP - General Family Medicine 02/15/21 Inocencio Khan Jr., MD Consulting Physician Urology 05/17/21 documented as of this encounter
--- OUTSIDE RECORDS SUMMARY | 2024-09-11 14:27 | XMS_ITS | Encounter Summary ---
Author Organization [facility] Address [address] [place] [address] Care Team Providers Care Electric Furnace Operator Name Role Phone Maia Real DO Primary Care Provider [phone]- [phone] Reason for Visit * Reason Comments Pre-op Exam Encounter Details Date Type Department Care Team (Late st Contact Info) Description 05/13/2021 4:45 PM CDT Clinical Support [facility] [address] [place] [address] Pre-op testing Social History Tobacco Use Types Packs/Day Years [...] as of this encounter Progress Notes * Miriam Kelley MA - 05/13/2021 4:45 PM CDT Patient presents today for pre procedure COVID-19 test. Scheduled for a procedure on 05/17/21. N95 mask, gown, gloves, and eye protection worn during swab collection. Patient instructed to self-isolate from time of swab collection until scheduled surgery. documented in this encounter Plan of Treatment Not on file documented as of this encounter Visit Diagnoses Diagnosis Pre-op testing Unspecified pre-operative examination documented in this encounter Care Teams Electric Furnace Operator Relationship Specialty Start Date End Date Maia Real DO PCP - General Family Medicine 02/15/21 documented as of this encounter
--- OUTSIDE RECORDS SUMMARY | 2024-09-11 14:27 | XMS_ITS | Encounter Summary ---
Author Organization [facility] Address [address] [place] [address] Phone Care Team Providers Care Human Services Case Manager Name Role Phone Maia Real DO Primary Care Provider +1- [phone] Bill Lauren MD, Inocecnio Stein Encounter Details Date Type Department Care Team (Late st Contact Info) Description 05/21/2021 Telephone [facility] Urology [address] [facility] Medical Office Building [address] [place] [address] Inocencio Khan Jr., MD [address] [facility] [address] [place] [address] Social History Tobacco Use Types [...] AM CDT documented as of this encounter Miscellaneous Notes * Telephone Encounter - Iqra Langston, A - 05/21/2021 8:29 AM CDT Mr. Mccloud will call back to schedule an OPKO in 2021 ----- Message from Inocencio Khan Jr., MD sent at 05/21/2021 8:02 AM CDT ----- No cancer; recommend 4 K score 1 year documented in this encounter Plan of Treatment Not on file documented as of this encounter Visit Diagnoses Not on filedocumented in this encounter Care Teams Human Services Case Manager Relationship Specialty Start Date End Date Maia Real DO PCP - General Family Medicine 02/15/21 Inocencio Khan Jr., MD Consulting Physician Urology 05/17/21 documented as of this encounter
--- OUTSIDE RECORDS SUMMARY | 2024-09-11 14:27 | XMS_ITS | Encounter Summary ---
Author Organization [facility] Address [address] [place] [address] Phone Care Team Providers Care Social Studies Department Chair Name Role Phone Maia Real DO Primary Care Provider +1- [phone] Bill Lauren MD, Inocencio Stein Encounter Details Date Type Department Care Team (Late st Contact Info) Description 05/21/2021 Telephone [facility] Urology [address] [facility] Medical Office Building [address] [place] [address] Inocencio Khan Jr., MD [address] [facility] [address] [place] [address] Social History Tobacco Use Types [...] Encounter - Iqra Langston, A - 05/21/2021 8:36 AM CDT I spoke with Mr. Mccloud and he said the dose was reduced by 50% since his last T level. ----- Message from Inocencio Khan Jr., MD sent at 05/21/2021 8:33 AM CDT ----- His last T was too high; he should reduce the dose. Not sure who is precribing it ----- Message ----- From: Iqra Langston RMA Sent: 05/21/2021 8:31 AM CDT To: Inocencio Khan Jr., MD Mr. Mccloud wants to know if he should continue T inj. .25 ml 2x per week. In your opinion ----- Message ----- From: Inocencio Khan Jr., MD Sent: 05/21/2021 8:02 AM CDT To: BENNY Hendrickson No cancer; recommend 4 K score 1 year documented in this encounter Plan of Treatment Not on file documented as of this encounter Visit Diagnoses Not on filedocumented in this encounter Care Teams Social Studies Department Chair Relationship Specialty Start Date End Date Maia Real DO PCP - General Family Medicine 02/15/21 Inocencio Khan Jr., MD Consulting Physician Urology 05/17/21 documented as of this encounter
--- OUTSIDE RECORDS SUMMARY | 2024-09-11 14:27 | XMS_ITS | Encounter Summary ---
Author Organization [facility] Address [address] [place] [address] Phone Care Team Providers Care Housekeeping Aide Name Role Phone Maia Real DO Primary Care Provider +1- [phone] Encounter Details Date Type Department Care Team (Late st Contact Info) Description 04/25/2021 Telephone [facility] Urology [address] [facility] Medical Office Building [address] [place] [address] Inocencio Khan Jr., MD [address] [facility] [address] [place] [address] Social History Tobacco Use Types Packs/Day Years Used Date Smoking Tobacco: Never Assessed Sex and Gender Information Value Date Recorded Sex Assigned at Not on file Legal Sex Male 1:35 PM CDT Gender Identity Not on file Sexual Orientation Straight 02/19/2021 7: 19 AM CDT documented as of this encounter Miscellaneous Notes * Telephone Encounter - Iqra Langston RMA - 04/25/2021 1:35 PM CDT ----- Message from BENNY Hendrickson sent at 04/25/2021 1:34 PM CDT ----- He said Dr. Narvaez is aware and the T level is being adjusted. ----- Message ----- From: Inocencio Khan Jr., MD Sent: 04/25/2021 7:53 AM CDT To: BENNY Hendrickson That is still on the high side. Dr Narvaez group should adjust the dose of T ----- Message ----- From: Iqra Langston RMA Sent: 04/24/2021 10:13 AM CDT To: Inocencio Khan Jr., MD His T level is 1,110 documented in this encounter Plan of Treatment Not on file documented as of this encounter Visit Diagnoses Not on filedocumented in this encounter Care Teams Housekeeping Aide Relationship Specialty Start Date End Date Maia Real DO PCP - General Family Medicine 02/15/21 documented as of this encounter
--- OUTSIDE RECORDS SUMMARY | 2024-09-11 14:27 | XMS_ITS | Encounter Summary ---
Author Organization [facility] Address [address] [facility] [address] [place] [address] Phone Care Team Providers Care Interventional Radiologist Name Role Phone Maia Real DO Primary Care Provider +1- [phone] Bill Lauren MD, Inocencio Downey Unavailable [phone] Encounter Details Date Type Department Care Team (Late st Contact Info) Description 11/24/2023 3:20 PM CDT Office Visit [facility] Urology [address] [facility] Medical Office Building [address] [place] [address] Mukul Luciano MD [address] [facility] [place] [address] Elevated PSA (Primary Dx) Social History Tobacco Use Types [...] Progress Notes * Mukul Luciano MD - 11/24/2023 3:20 PM CDT Chief Complaint: Follow-up for history of elevated PSA History of Present Illness: Justin Mccloud is a 63 y.o. male with a history of elevated PSA of a previously as high as 5.7. He is had prior MRI of the prostate demonstrating this 67 cc gland with no high-risk lesions. He also had a transperineal exact view ultrasound- guided biopsy with Dr. Khan in 2020 which was negative. Hehas been on testosterone replacement therapy for hypogonadism which manages his symptoms well. He has every six-month PSA is partners monitoring. His most recent PSA was 4.9, down significantly from his prior higher values. He takes sildenafil for erectile dysfunction. He denies any new urinary symptoms and reports no urinary bother. The patient's past medical, surgical, medication, allergy, family, and social histories were reviewed and are unchanged except as stated above in the HPI above. Objective: Physical Exam Gen: Well appearing male in no distress Neuro: Alert, conversation appropriate and does not require redirection Skin: No rashes or lesions of exposed skin Head: normocephalic Ears: Hearing normal Pulm: Respirations non-labored. MSK: Ambulates without assistance. Moves all 4 extremities. Labs: The following lab results were personally reviewed by me: Lab Results Component Value Date PSA 4.6 (H) 04/02/2021 PSA 4.9 10/2023 Medical Complexity and Decision Making: My total [...] his his tory of elevated PSA Assessment/Plan: Justin Mccloud is a 63 y.o. male with the following diagnoses: (R97.20) Elevated PSA Mr. Mccloud continues to do well. He remains on testosterone replacement and his PS has continued todowntrend. Most recent PSA was 4.9. Has a history of prior negative biopsy and no new bothersome urinary symptoms. He will continue every six-month PSA evaluations with his physician who is replacinghis testosterone and I will see him back in 1 year for repeat evaluation. Mukul Luciano MD Urologic Surgical Oncologist Division of Urologic Surgery [facility] [place] documented in this encounter Plan of Treatment Not on file documented as of this encounter Visit Diagnoses Diagnosis Elevated PSA- Primary Elevated prostate specific antigen (PSA) documented in this encounter Care Teams Interventional Radiologist Relationship Specialty Start Date End Date Maia Real DO PCP - General Family Medicine 02/15/21 Inocencio Khan Jr., MD Consulting Physician Urology 05/17/21 documented as of this encounter
--- OUTSIDE RECORDS SUMMARY | 2024-09-11 14:27 | XMS_ITS | Encounter Summary ---
Author Organization [facility] Address [address] [place] [address] Care Team Providers Care Field Servicer Name Role Phone Maia Real DO Primary Care Provider +1- [phone] Bill Lauren MD, Inocencio CastañedaBroderick Unavailable [phone]- [phone] Encounter Details Date Type Department Care Team (Late st Contact Info) Description 05/17/2021 11:05 AM CDT Anesthesia Event [facility] Operating Room [address] [place] [address] Darlyn Duke MD [address] [place] [address] Shereen Barrientos NP [address] [facility] [address] [phone] [place] [address] Anesthesia Record Procedure Summary Procedure Name Responsible Anesthesiologist Anesthesia Start Time Anesthesia Stop Time TRANSPERINEAL EXACT VU GUIDED PROSTATE BIOPSY (Perineum) Darlyn Duke MD 05/17/21 1105 05/17/21 1155 Events Date Time Event Comment 05/17/2021 0917 In Preop 0930 AN Equip Check 1105 An Start 1110 In Room 1110 An Start Data 1113 An Induction The patient was reevaluated immediately before moderate or deep sedation use and before anesthesia induction. 1115 An LMA 1117 Anesthesia Ready 1120 Proc Start 1138 Proc Fin 1144 Airway Removed 1146 an stop data 1146 Out of Room 1155 Handoff to RN I completed my handoff to the receiving nurse during which we: 1. Patient identified 2. Responsible provider identified 3. Pertinent medical history reviewed 4. Procedure type and surgical course discussed 5. Intraoperative anesthetic management and any significant issues discussed 6. Expectations and concerns for postop period discussed 7. Questions solicited from receiving nurse 8. Patient disposition at the time of handoff: PACU 1155 An Stop Meds Name Total midazolam 2 mg/2 mL 2 mg fentaNYL PF 100 mcg Lidocaine IV 1% 50 mg propofol 200 mg ondansetron PF 4 mg dexamethasone 4 mg/mL 4 mg Lactated Ringer's (LR) infusion 1,000 mL * Agents Name O2 Air Sevoflurane Inspired Sevoflurane * Blood No blood administrations on file. Lines, Drains, and Airways Type Details Placement Removal Peripheral IV Placement Date: 05/17/21; Placement Time: 0830; Catheter Size: 20 G; Orientation: Anterior, Right; Location: Forearm; Site Prep: Chlorhexidine; Insertion Attempts: 1; Patient Tolerance: Tolerated well; Removal Date: 05/17/21; Removal Time: 1223 05/17/21 0830 by Aura Martinez RN 05/17/21 1223 by Marion Hunt RN Supraglottic Airway Placement Date: 05/17/21; Placement Time: 1115 (created via procedure documentation); Mask Ventilation: 0; Size: 4; Insertion Attempts: 1; Removal Date: 05/17/21; Removal Time: 1144 05/17/21 1115 by Lara Webb CRNA 05/17/21 1144 by Lara Webb CRNA RETIRED Surgical Site 05/17/21; 1122; Perineum; 08/02/24 (Retired LDA, Removed/Completed by [facility] with LDA Utility); 1213 (Retired LDA, Removed/Completed by [facility] with LDA Utility) 05/17/21 1122 by Arely Servin RN 08/02/24 1213 by Discharge Provider, Automatic documented in this encounter Social History Tobacco [...] AM CDT documented as of this encounter OR Notes * Anesthesia Postprocedure Evaluation - Darlyn Duke MD - 05/17/2021 12:10 PM CDT Patient: Justin Mccloud Procedure Summary Date: 05/17/21 Room / Location: [facility] OPERATING ROOM 02 / [facility]PER[facility] Anesthesia Start: 1105 Anesthesia Stop: 1155 Procedure: TRANSPERINEAL EXACT VU GUIDED PROSTATE BIOPSY (N/A Perineum) Diagnosis: Elevated PSA (Elevated PSA [R97.20]) Surgeons: Inocencio Khan Jr., MD Responsible Provider: Darlyn Duke MD Anesthesia Type: general ASA Status: 2 Anesthesia Type: general Last vitals BP 123/71 Pulse 69 Temp 36.4 ??C (97.5 ??F) (Core) Resp 8 SpO2 97% Anesthesia Post Evaluation Patient location during evaluation: PACU Patient participation: complete - patient participated Pain score: 0 Pain management: satisfactory to patient Airway patency: adequate and patent Cardiovascular status: acceptable and hemodynamically stable Respiratory status: acceptable Hydration status: acceptable Pt is: normothermic Nausea/Vomiting status: none Comments: Vitals wnl. No n/v. Ready for discharge from pacu. No complications documented. * Anesthesia Procedure Notes - Lara Webb CRNA - 05/17/2021 11:20 AM CDTAssociated Order(s): Airway Airway Patient location: OR Urgency: elective Date/time: 05/17/2021 11:15 AM Indications for airway management: anesthesia Difficult airway: no Emergent airway documentation: Risks and benefits discussed: yes Consent obtained: yes Consent given by: patient Airway prep: Preoxygenated: yes Patient position: sniffing Mask difficulty assessment: 0 - not attempted Spontaneous ventilation during airway: absent Sedation level during airway: GA Final airway details: Final airway type: supraglottic airway Final supraglottic airway: IGel SGA size: 4 Number of attempts: 1 Ventilation between attempts: none * Anesthesia Preprocedure Evaluation - Darlyn Duke MD - 05/10/2021 8:45 AM CDT Images from the original note were not included. [facility] for Preoperative Assessment and Planning Preoperative Evaluation Record Evaluation type/location: TPAP from [facility] Planned procedure site: [facility] OR Date: 05/10/21 NOTE: This note represents a preoperative evaluation initiated via telephone interview. NO PHYSICALEXAM was performed at the time of initial assessment. A physical exam may be added to this note anddocumented below. Anesthesia Evaluation Justin Mccloud is a 60 y.o. male Procedure(s): TRANSPERINEAL EXACT VU GUIDED PROSTATE BIOPSY Pre-Op Diagnosis Codes: * Elevated PSA [R97.20] HISTORY HPI Justin Mccloud is a 60 year old male with [...] Cardiovascular + Hypertension Pertinent negatives: CAD ; RI ; CABG ; valvular heart disease; valve [...] Preoperative assessment status: complete. Additional comments: Justin Mccloud is a 60 y.o. male who is [...] Patient instructions were provided electronically sent via [employer]. Patient verbalized understanding of preoperative plan. Blood [...] COVID19 testing to be performed on 05/13/21. [facility] will place the order for testing. Result to be reviewed by surgeon's office. TPAP process complete. Preoperative evaluation performed by Joana Solis NP on 05/10/21 at 8:51 AM . Patient Active Problem List Diagnosis ??? Elevated PSA Past Medical History: Diagnosis Date ??? Hypertension Past Surgical History: Procedure Laterality ??? APPENDECTOMY 1969 ??? COLONOSCOPY 2010 ??? [...] Medication protocol when under care of a COMPILATION CLERK Planned anesthesia: General/TIVA Induction: Induction: intravenous. Postoperative Plan: Postoperative administration opioids intended. No postoperative mechanical ventilation intended. Informed Consent: Discussed plan with COMPILATION CLERK. Anesthesia plan and risks discussed with patient. Consent and Attending signature: I and/or my designee have discussed the anesthesia plan, benefits, possible alternatives, parental presence at time of induction (if indicated), and clinically relevant risks that may include dental injury, unintentional awareness, and/or other complications. The patient and/or parent/legal guardian understand, and agree to proceed. All questions answered. documented in this encounter Plan of Treatment Not on file documented as of this encounter Procedures Procedure Name Priority Date/Time Associated Diagnosis Comments MO AN PROCEDURE PLACEHOLDER Routine 05/17/2021 11:15 AM CDT MO AN ELECTIVE SUPRAGLOTTIC AIRWAY Routine 05/17/2021 11:15 AM CDT documented in this encounter Results * MO AN ELECTIVE SUPRAGLOTTIC AIRWAY, MO AN PROCEDURE PLACEHOLDER (05/17/2021 11:15 AM CDT) Narrative Lara Webb CRNA - 05/17/2021 11:15 AM CDT Lara Webb CRNA ? 05/17/2021 11:20 AM Airway Patient location: OR Urgency: elective Date/time: 05/17/2021 11:15 AM Indications for airway management: anesthesia Difficult airway: no Emergent airway documentation: Risks and benefits discussed: yes Consent obtained: yes Consent given by: patient Airway prep: Preoxygenated: yes Patient position: sniffing Mask difficulty assessment: 0 - not attempted Spontaneous ventilation during airway: absent Sedation level during airway: GA Final airway details: Final airway type: supraglottic airway Final supraglottic airway: IGel SGA size: 4 Number of attempts: 1 Ventilation between attempts: none us Darlyn Duke MD ANESTHESIA ORDERABLES Final Resu lt documented in this encounter Visit Diagnoses Not on filedocumented in this encounter Administered Medications Inactive Administered Medications - up to 3 most recent administrations Medication Order MAR Action Action Date Dose Rate Site dexAMETHasone (DECADRON) 4 mg/mL injection intravenous, Administer over 2 Minutes, As needed, Starting on Thu05/17/21 at 1122, Anesthesia Intra-op Given 05/17/2021 11:22 AM CDT 4 mg fentaNYL (SUBLIMAZE) preservative free injection intravenous, As needed, Starting on Thu05/17/21 at 1112, Anesthesia Intra-op Given 05/17/2021 11:25 AM CDT 50 mcg Given 05/17/2021 11:12 AM CDT 50 mcg Lactated Ringer's (LR) infusion 30 mL/hr, intravenous, Continuous, Starting on Thu05/17/21 at 1000, For 4 hours, Pre-Op, Use a 500 ml bag for End Stage Renal Disease Patients. Discontinue if fluid still running once patient arrives to floor. New Bag 05/17/2021 11:34 AM CDT Rate/Dose Verify 05/17/2021 11:05 AM CDT 30 mL/ hr New Bag 05/17/2021 9:49 AM CDT 30 mL/hr 30 mL/hr lidocaine PF (XYLOCAINE) 10 mg/mL (1 %) preservative free injection intravenous, As needed, Starting on Thu05/17/21 at 1113, Anesthesia Intra-op Given 05/17/2021 11:13 AM CDT 50 mg midazolam (VERSED) 1 mg/mL injection intravenous, As needed, Starting on Thu05/17/21 at 1107, Anesthesia Intra-op Given 05/17/2021 11:07 AM CDT 2 mg ondansetron (ZOFRAN) injection intravenous, Administer over 2 Minutes, As needed, Starting on Thu05/17/21 at 1106, Anesthesia Intra-op Given 05/17/2021 11:06 AM CDT 4 mg propofoL (DIPRIVAN) 10 mg/mL IV intravenous, As needed, Starting on Thu05/17/21 at 1113, Anesthesia Intra-op Given 05/17/2021 11:13 AM CDT 200 mg documented in this encounter Care Teams Field Servicer Relationship Specialty Start Date End Date Maia Real DO PCP - General Family Medicine 02/15/21 Inocencio Khan Jr., MD Consulting Physician Urology 05/17/21 documented as of this encounter
--- OUTSIDE RECORDS SUMMARY | 2024-09-11 14:27 | XMS_ITS | Encounter Summary ---
Author Organization [facility] Address [address] [place] [address] Phone Care Team Providers Care Post Adoption Coordinator Name Role Phone Maia Real DO Primary Care Provider +1- [phone] Encounter Details Date Type Department Care Team (Late st Contact Info) Description 03/25/2021 Orders Only [facility] Urology [address] [facility] Medical Office [address] [place] [address] AndInocencio berger Jr., MD [address] [facility] [address] [place] [address] Elevated PSA (Primary Dx) Social History Tobacco Use Types Packs/Day Years Used Date Smoking Tobacco: Never Assessed Sex and Gender Information Value Date Recorded Sex Assigned at Not on file Legal Sex Male 1:35 PM CDT Gender Identity Not on file Sexual Orientation Straight 02/19/2021 7: 19 AM CDT documented as of this encounter Plan of Treatment Scheduled Orders Name Type Priority Associated Diagnoses Orde r Schedule PSA diagnostic Lab Routine Elevated PSA 4 Occurrences starting 03/25/2021 until 03/25/2022, 1 completed documented as of this encounter Procedures Procedure Name Priority Date/Time Associated Diagnosis Comments TOTAL TESTOSTERONE Routine 04/02/2021 3: 09 PM CDT PSA DIAGNOSTIC Routine 04/02/2021 3:09 PM CDT Elevated PSA documented in this encounter Results * (ABNORMAL) Testosterone (04/02/2021 3:09 PM CDT) Testosterone 1,110(H) 264 - 916 ng/dL [facility] - 01 Comment: Adult male reference interval is based on a population of healthy nonobese males (BMI <30) between 19 and 39 years old. murtaza Brown.al. JCEM 2017,102;3824-0883. PMID: [id number]. 04/02/2021 3:09 PM CDT 04/02/2021 Narrative [facility] - 04/03/2021 4:10 PM CDT Performed at: ??01 - [address] ??[id number] Group Insurance Special Agent: Velasquez Donald PhD, Phone: ??[phone] us Inocencio Khan Jr., MD LAB BLOOD ORDERABLES Final Result [facility] * (ABNORMAL) PSA diagnostic (04/02/2021 3:09 PM CDT) PSA 4.6(H) 0.0 - 4.0 ng/mL [facility] - 01 Comment: Doc ECLIA methodology. According to the [place] [employer], Serum PSA should decrease and [...] 4:10 PM CDT Performed at: ??01 - [address] ??[id number] Group Insurance Special Agent: Velasquez Donald PhD, Phone: ??[phone] us Inocencio Khan Jr., MD LAB BLOOD ORDERABLES Final Result [facility] - 01 documented in this encounter Visit Diagnoses Diagnosis Elevated PSA- Primary Elevated prostate specific antigen (PSA) documented in this encounter Care Teams Post Adoption Coordinator Relationship Specialty Start Date End Date Maia Real DO PCP - General Family Medicine 02/15/21 documented as of this encounter
--- OUTSIDE RECORDS SUMMARY | 2024-09-11 14:27 | XMS_ITS | Encounter Summary ---
Author Organization [facility] Address [address] [place] [address] Care Team Providers Care Manager Park Name Role Phone Maia Real DO Primary Care Provider +1- [phone] Encounter Details Date Type Department Care Team (Late st Contact Info) Description 05/13/2021 9:05 PM CDT Lab [address] [address] Preop testing Social History Tobacco Use Types Packs/Day [...] Procedure Name Priority Date/Time Associated Diagnosis Comments COVID-19 CORONAVIRUS RNA Routine 05/13/2021 4:36 PM CDT Preop testing documented in this encounter Results * COVID-19 Coronavirus RNA Nasopharyngeal (05/13/2021 4:36 PM CDT) COVID-19 RNA Not Detected [facility] Comment: Interpretive Data Synonyms for this test [...] on October 04, 2020. Testing performed by: [facility], [address] [facility], [address] First COVID-19 test? Unknown [facility] Comment:Testing performed by : [facility], [address] [place] [address], [address] Employeed in healthcare? No [facility] CH Comment:Testing performed by : [facility], [address] [place] [address], [address] status? No [facility] CH Comment:Testing performed by : [facility], [address] [place] [address], [address] Group care resident? No [facility] CH Comment:Testing performed by : [facility], [address] [facility], [address] Hospitalized? Unknown C[facility]ER Comment:Testing performed by : [facility], [address] [place] [address], [address] Is patient in ICU? Unknown [facility]ER Comment:Testing performed by : [facility], [address] [place] [address], [address] Symptomatic as defined by CDC? No [facility] CH Comment:Testing performed by : [facility], [address] [place] [address], [address] Nasopharyngeal 05/13/2021 4: 36 PM CDT 05/14/2021 1:01 AM CDT Narrative [facility] - 05/14/2021 9:16 AM CDT What is the reason for testing?->Screening prior to scheduled procedure or surgery (batch) Inocencio Khan Jr., MD LAB MICROBIOLOGY - [facility] ORDERABLES Final Result [facility] [address] [place] [address] documented in this encounter Visit Diagnoses Diagnosis Preop testing Unspecified pre-operative examination documented in this encounter Care Teams Manager Park Relationship Specialty Start Date End Date Maia Real DO PCP - General Family Medicine 02/15/21 documented as of this encounter
--- OUTSIDE RECORDS SUMMARY | 2024-09-11 14:27 | XMS_ITS | Referral Summary ---
Author Organization [facility] Address [address] [place] [address] Care Team Providers Care Front End Wheel Loader Operator Name Role Phone Maia Real Primary Care Provider +1- [phone] Bill Lauren MD, [facility]. Unavailable Allergies No known active allergies Medications [...] (03/25/2021): Added automatically from request for surgery [id number] Immunizations Name Administration Dates Next Due Pfizer SARS-CoV-2 Monovalent Vaccination (12+ Yrs) PURPLE 12/11/2020,11/20/2020 Social History Tobacco Use Types Packs/Day Years [...] Orientation Straight 02/19/2021 7: 19 AM CDT Last Filed Vital Signs Vital Sign Reading [...] 05/17/2021 9:20 AM CDT Plan of Treatment Not on file Procedures Procedure Name Priority Date/Time Associated Diagnosis Comments PSA DIAGNOSTIC Routine 04/02/2021 3:09 PM CDT Elevated PSA from Last 3 Months or Most Recently Relevant to Health Maintenance Results * (ABNORMAL) PSA diagnostic (04/02/2021 3:09 PM CDT) PSA 4.6(H) 0.0 - 4.0 ng/mL [facility] - 01 Comment: Doc ECLIA methodology. According to the [employer], Serum PSA should decrease and [...] PM CDT Performed at: ??01 - [facility] [address] ??[id number] Quill Fixer: Velasquez Donald PhD, Phone: ??[phone] Inocencio Khan Jr., MD LAB BLOOD ORDERABLES Final Result Performing Organization Address City/State/[facility] Phone Number [facility] - 01 from Last 3 Months or Most Recently Relevant to Health Maintenance Insurance [facility] CHO[facility] PLUS [facility] [place] [address] [facility] CHO[facility] PLUS Care Teams Front End Wheel Loader Operator Relationship Specialty Start Date End Date Maia Real DO PCP - General Family Medicine 02/15/21 Inocencio Khan Jr., MD Consulting Physician Urology 05/17/21
--- OUTSIDE RECORDS SUMMARY | 2024-09-11 14:27 | XMS_ITS | Encounter Summary ---
Author Organization [facility] Address [address] [place] [address] Phone Care Team Providers Care Commercial Construction Project Manager Name Role Phone Maia Real DO Primary Care Provider +1- [phone] Bill Lauren MD, Inocencio Downey Unavailable Encounter Details Date Type Department Care Team (Late st Contact Info) Description 12/18/2022 Telephone [facility] [place] [address] Sis Fan Social History Tobacco Use Types Packs/Day Years [...] encounter Miscellaneous Notes * Telephone Encounter - Sis Fan - 12/18/2022 8:44 AM CDT Called 3 times and left message documented in this encounter Plan of Treatment Not on file documented as of this encounter Visit Diagnoses Not on filedocumented in this encounter Care Teams Commercial Construction Project Manager Relationship Specialty Start Date End Date Maia Real DO PCP - General Family Medicine 02/15/21 Inocencio Khan Jr., MD Consulting Physician Urology 05/17/21 documented as of this encounter
--- OUTSIDE RECORDS SUMMARY | 2024-09-11 14:28 | XMS_ITS | Encounter Summary ---
Author Organization [facility] Address [address] [place] [address] Phone Care Team Providers Care Manager Appointment Name Role Phone Maia Real DO Primary Care Provider +1- [phone] Encounter Details Date Type Department Care Team (Late st Contact Info) Description 03/22/2021 Orders Only [facility] Urology [address] [facility] [address] Office [address] [place] [phone] AndInocencio berger Jr., MD [address] [facility] [address] [place] [address] Social History Tobacco Use Types [...] the night before your procedure. 1 capsule 03/22/2021 documented in this encounter Plan of Treatment Not on file documented as of this encounter Visit Diagnoses Not on filedocumented in this encounter Care Teams Manager Appointment Relationship Specialty Start Date End Date Maia Real DO PCP - General Family Medicine 02/15/21 documented as of this encounter
--- OUTSIDE RECORDS SUMMARY | 2024-09-11 14:28 | XMS_ITS | Encounter Summary ---
Author Organization [facility] Address [address] [place] [address] Phone Care Team Providers Care Hollow Handle Bench Worker Name Role Phone Maia Real DO Primary Care Provider +1- [phone] Encounter Details Date Type Department Care Team (Late st Contact Info) Description 03/25/2021 Orders Only [facility] Urology [address] [facility] Medical Office Building [address] [place] [phone] AndInocencio berger Jr., MD [address] [facility] [address] [place], [place] [id number] Elevated PSA (Primary Dx) Social History Tobacco [...] (PSA) documented in this encounter Care Teams Hollow Handle Bench Worker Relationship Specialty Start Date End Date Maia Real DO PCP - General Family Medicine 02/15/21 documented as of this encounter
--- OUTSIDE RECORDS SUMMARY | 2024-09-11 14:28 | XMS_ITS | Encounter Summary ---
Author Organization [facility] Address [address] [place] [address] Care Team Providers Care Master Plumber Name Role Phone TamakenzieMaia wood Primary Care Provider +1- [phone] Reason for Referral * MRI/CAT/PET Scan (Routine) - Closed Specialty Diagnoses / Procedures Referred By Contac t Referred To Contact Radiology Diagnoses Elevated PSA Prostate cancer (HCC) Procedures MRI Pelvis Prostate W WO Contrast Inocencio Khan Jr., MD Phone: tel: fax: [address] [address] Referral ID Status Reason Start Date Expiration Date Visits Re quested Visits Authorized [id number] Closed 02/26/2021 03/28/2022 1 1 Reason for Visit * MRI/CAT/PET Scan (Routine) - Closed Specialty Diagnoses / Procedures Referred By Contac t Referred To Contact Radiology Diagnoses Elevated PSA Prostate cancer (HCC) Procedures MRI Pelvis Prostate W WO Contrast Inocencio Khan Jr., MD Phone: tel: fax: [address] [address] Referral ID Status Reason Start Date Expiration Date Visits Re quested Visits Authorized [id number] Closed 02/26/2021 03/28/2022 1 1 Encounter Details Date Type Department Care Team (Latest Contact Info) Description 03/17/2021 9:02 AM CDT - 03/17/2021 11:59 PM CDT Hospital Encounter [facility] [address] [address] Inocencio Khan Jr., MD [address] [place] [address] Elevated PSA; Prostate cancer (CMS/HCC) (HCC) Discharge Disposition: Discharge to home or self care Social History Tobacco Use Types Packs/Day Years Used Date Smoking Tobacco: Never Assessed Sex and Gender Information Value Date Recorded Sex Assigned at Not on file Legal Sex Male 1:35 PM CDT Gender Identity Not on file Sexual Orientation Straight 02/19/2021 7: 19 AM CDT documented as of this encounter Medications at Time of Discharge sildenafiL (VIAGRA) 100 mg tablet Take 100 mg by mouth as needed for erectile dysfunction 03/13/2021 testosterone cypionate (DEPO-TESTOTERON E) 100 mg/mL injectionIndicat ions:Androgen Deficiency Inject 0.25 mL into the muscle as instructed 2 (two) times a week Wed, Sat. 04/13/2020 documented as of this encounter Discharge Disposition Disposition Code Departure Means Destination Discharge to home or self care documented in this encounter Plan of Treatment Not on file documented as of this encounter Procedures Procedure Name Priority Date/Time Associated Diagnosis Comments MRI PELVIS PROSTATE W WO CONTRAST Schedule Routine, Read Routine (OP Routine) 03/17/2021 10:08 AM CDT Elevated PSA Prostate cancer (CMS/HCC) (HCC) POC ISTAT Routine 03/17/2021 9:59 AM CDT documented in this encounter Results * MRI Pelvis Prostate W WO Contrast (03/17/2021 10:08 AM CDT) Anatomical Region Laterality Modality Body N/A Magnetic Resonan ce 03/18/2021 2:19 PM CDT Impressions 03/18/2021 3:42 PM CDT 1. Findings of benign prostatic hyperplasia with no suspicious lesions (PI-RADS 3 or greater) in the prostate. Dictated by: Micheal Henriquez M.D. The radiology attending physician has personally reviewed this study, and had reviewed and/or edited this written report and agrees with it. Electronically signed by: Tyler Mirza M.D. Narrative 03/18/2021 3:42 PM CDT EXAMINATION: MAGNETIC RESONANCE IMAGING OF THE PELVIS WITHOUT AND WITH CONTRAST HISTORY: 60-year-old male with hypogonadism on testosterone supplementation with rising PSA. ??Per report, and 2019 is present with 2.5 [...] represent sequelae of prior prostatitis. Staging Information: ??No enlarged lymph nodes are identified. No suspicious osseous lesions are identified. Procedure Note Tyler Mirza MD - 03/18/2021 EXAMINATION: MAGNETIC RESONANCE IMAGING OF THE PELVIS [...] identified. No suspicious osseous lesions are identified. IMPRESSION: 1. Findings of benign prostatic hyperplasia with no suspicious lesions (PI-RADS 3 or greater) in the prostate. Dictated by: Micheal Henriquez M.D. The radiology attending physician has personally reviewed this study, and had reviewed and/or edited this written report and agrees with it. Electronically signed by: Tyler Mirza M.D. Inocencio Khan Jr., MD IM MRI PROCEDURES Fi nal Result * POC ISTAT (03/17/2021 9:59 AM CDT) Creatinine, POC, bld 1.2 0.6 - 1.3 mg/dL OLU DUNLAP Comment: Interpretive data Creatinine <1.5 mg/dL and stable receive IV contrast. Creatinine 1.5-1.9 mg/dL and stable use Visipaque IV contrast. Current interpretive data last reviewed 2015. POC Device Number [id number] [facility] Performer [id number] OLU CASTANEDA Blood specimen (specimen) 03/17/2021 9:59 AM CDT 03/17/2021 9:59 AM CDT Inocencio Khan Jr., MD LAB BLOOD ORDERABLES Final Result [facility] [address] [facility]. Department of Laboratories [place], [place] [id number] documented in this encounter Visit Diagnoses Diagnosis Elevated PSA Elevated prostate specific antigen (PSA) Prostate cancer (HCC) Malignant neoplasm of prostate documented in this encounter Administered Medications Inactive Administered Medications - up to 3 most recent administrations Medication Order MAR Action Action Date Dose Rate Site gadoterate meglumine (DOTAREM) 0.5 mmol/mL injection 0.1 mmol/kg 0.1 mmol/kg, intravenous, Once in imaging, contrast, Starting on 03/17/21 at 0959, For 1 dose, Imaging Protocol Orders Contrast Given 03/17/2021 10:10 AM CDT 20 mL sodium chloride 0.9% flush 125 mL 125 mL, intravenous, Once in imaging, line care, Starting on 03/17/21 at 1009, For 1 dose Given 03/17/2021 10:10 AM CDT 125 mL documented in this encounter Care Teams Master Plumber Relationship Specialty Start Date End Date Maia Real DO PCP - General Family Medicine 02/15/21 documented as of this encounter
--- OUTSIDE RECORDS SUMMARY | 2024-09-11 14:28 | XMS_ITS | Encounter Summary ---
Author Organization [facility] Address [address] [place] [address] Phone Care Team Providers Care Desulphuring Operator Name Role Phone Maia Real DO Primary Care Provider +1- [phone] Encounter Details Date Type Department Care Team (Late st Contact Info) Description 03/25/2021 Orders Only [facility] Urology [address] [facility] Medical Office Building [address] [place] [phone] AndInocencio berger Jr., MD [address] [facility] [address] [place], [place] [phone] Low testosterone (Primary Dx) Social History Tobacco Use Types [...] Type Priority Associated Diagnoses Orde r Schedule Testosterone Lab Routine Low testosterone Expected: 03/25/2021, Expires: 03/25/2022 documented as of this encounter Visit Diagnoses Diagnosis Low testosterone- Primary documented in this encounter Care Teams Desulphuring Operator Relationship Specialty Start Date End Date Maia Real DO PCP - General Family Medicine 02/15/21 documented as of this encounter
--- OUTSIDE RECORDS SUMMARY | 2024-09-11 14:28 | XMS_ITS | Encounter Summary ---
Author Organization [facility] Address [address] [place] [address] Phone Care Team Providers Care Hand Woven Carpet And Rug Mender Name Role Phone Maia Real DO Primary Care Provider +1- [phone] Encounter Details Date Type Department Care Team (Late st Contact Info) Description 03/25/2021 Orders Only [facility] Urology [address] [facility] Medical Office Building [address] [place] [phone] AndInocencio berger Jr., MD [address] [facility] [address] [place], [place] [phone] Low testosterone (Primary Dx) Social History Tobacco [...] Primary documented in this encounter Care Teams Hand Woven Carpet And Rug Mender Relationship Specialty Start Date End Date Maia Real DO PCP - General Family Medicine 02/15/21 documented as of this encounter
--- OUTSIDE RECORDS SUMMARY | 2024-09-11 14:28 | XMS_ITS | Encounter Summary ---
Author Organization [facility] Address [address] [place] [address] Phone Care Team Providers Care Rehab Manager Name Role Phone Tamakenzieisrael Maiaashley Oviedo Primary Care Provider +1- [phone] Reason for Referral * MRI/CAT/PET Scan (Routine) - Closed Specialty Diagnoses / Procedures Referred By Christa stephen Referred To Contact Radiology Diagnoses Elevated PSA Prostate cancer (HCC) Procedures MRI Pelvis Prostate W WO Contrast Inocencio Khan Jr., MD Phone: tel: fax: [address] [address] Referral ID Status Reason Start Date Expiration Date Visits Re quested Visits Authorized [id number] Closed 02/26/2021 03/28/2022 1 1 Reason for Visit * Reason Comments Prostate Cancer Elevated PSA * Consultation (Routine) - Closed Specialty Diagnoses / Procedures Referred By Christa stephen Referred To Contact Urology Diagnoses Elevated PSA Nnamdi Narvaez DO Phone: tel: fax: [facility] (All Locations) Referral ID Status Reason Start Date Expiration Date V isits Requested Visits Authorized [id number] Closed Specialty Services Required 02/15/2021 03/17/2022 99 99 Encounter Details Date Type Department Care Team (Late st Contact Info) Description 02/26/2021 2:00 PM CDT Office Visit [facility] Urology [address] [facility] Medical Office Building [address] [place] [phone] Inocencio Khan Jr., MD [address] [place] [address] Prostate cancer (CMS/HCC) (Primary Dx); Elevated PSA Social History Tobacco Use Types Packs/Day Years Used Date Smoking Tobacco: Never Assessed Sex and Gender Information Value Date Recorded Sex Assigned at Not on file Legal Sex Male 1:35 PM CDT Gender Identity Not on file Sexual Orientation Straight 02/19/2021 7: 19 AM CDT documented as of this encounter Progress Notes * Inocencio Khan Jr., MD - 02/26/2021 2:00 PM CDT NAME: Justin Mccloud : 1960 Date of Service: @DATE@ Referred by: Nnamdi Narvaez, DO Chief Complaint Patient presents with ??? Prostate Cancer ??? Elevated PSA I have been requested by Nnamdi Narvaez, DO to see Justin Mccloud, a 60 y.o. year old male regardingelevated PSA. HPI: This patient has a history of hypogonadism apparently 1st identified in 2015. He has been receivingtestosterone supplementation with close monitoring of his testosterone levels. In 2019 his ProstateSpecific Antigen was 2.5. Most recently his serum Prostate Specific Antigen is 3.99. He had an OPKO4K score of 11%. He does not have a family history of prostate cancer. He does not complain of LUTS. He had a a testosterone level of over 1500 earlier this year and he states that his dose of testosterone was adjusted accordingly. ROS: All negative except per HPI No past medical history on file. No past surgical history on file. No family history on file. No Known Allergies No current outpatient medications on file. No current facility-administered medications for this visit. Social History Socioeconomic History ??? Marital status: Spouse name: Not on file ??? Number of children: Not on file ??? Years of education: Not on file ??? Highest education level: Not on file Occupational History ??? Not on file Tobacco Use ??? Smoking status: Not on file Substance and Sexual Activity ??? Alcohol use: Not on file ??? Drug use: Not on file ??? Sexual activity: Not on file Other Topics Concern ??? Not on file Social History Narrative ??? Not on file Social Determinants of Health Financial Resource Strain: ??? Difficulty of Paying Living Expenses: Food Insecurity: ??? Worried About Running Out of Food in the Last Year: ??? Ran Out of Food in the Last Year: Transportation Needs: ??? Lack of Transportation (Medical): ??? Lack of Transportation (Non-Medical): Physical Activity: ??? Days of Exercise per Week: ??? Minutes of Exercise per Session: Stress: ??? Feeling of Stress : Social Connections: ??? Frequency of Communication with Friends and Family: ??? Frequency of Social Gatherings with Friends and Family: ??? Attends Gnosticism Services: ??? Active Member of Clubs or Organizations: ??? Attends Club or Organization Meetings: ??? Marital Status: Intimate Partner Violence: ??? Fear of Current or Ex-Partner: ??? Emotionally Abused: ??? Physically Abused: ??? Sexually Abused: There were no vitals taken for this visit. General Appearance: He is a healthy appearing male, who is well developed and well nourished in no acute distress Head: Normocephalic, without obvious abnormality, atraumatic Lab/Radiology/Diagnostic Review: Laboratory review: reviewed the laboratory result(s) of PSA, 4k score and T levels Additional Labs: UA: No results found for: SPECGRAVUR, KENNY, RBCU, LEUKOCYTESU, GLUCOSEU, UROBILINOGEN, SQUAMEPIU, NITRITEU, KETONESU PSA (3 most recent): No results found for: PSA, PSAFREE ASSESSMENT/PLAN: 1. I had a long discussion with the patient about the pros and cons of prostate cancer screening. Brandon discussed the roles of random TRUS biopsy v. MRI- targeted biopsy and the use of reflex tests to assess his risk for prostate cancer. Based on this, he has decided to proceed with an MRI of the prostate. 2. No orders of the defined types were placed in this encounter. documented in this encounter Plan of Treatment Not on file documented as of this encounter Results * MRI Pelvis Prostate [...] MD IM MRI PROCEDURES Fi nal Result documented in this encounter Visit Diagnoses Diagnosis Prostate cancer (HCC)- Primary Malignant neoplasm of prostate Elevated PSA Elevated prostate specific antigen (PSA) Elevated PSA Elevated prostate specific antigen (PSA) Prostate cancer (HCC) Malignant neoplasm of prostate documented in this encounter Orders Outpatient Referral Count Last Ordered Date Fir st Ordered Date AMB REFERRAL TO UROLOGY 1 02/26/2021 documented in this encounter Care Teams Rehab Manager Relationship Specialty Start Date End Date Maia Real DO PCP - General Family Medicine 02/15/21 documented as of this encounter
--- OUTSIDE RECORDS SUMMARY | 2024-09-11 14:28 | XMS_ITS | Encounter Summary ---
Author Organization [facility] Address [address] [place] [address] Care Team Providers Care Cotton Buyer Name Role Phone Maia Real DO Primary Care Provider +- [phone] Bill Lauren MD, Inocencio Stein Encounter Details Date Type Department Care Team (Late st Contact Info) Description 03/14/2021 Telephone [facility] Imaging [address] [place] [address] Miriam Nowak, Social History Tobacco Use Types Packs/Day Years [...] on filedocumented in this encounter Care Teams Cotton Buyer Relationship Specialty Start Date End Date Maia Real DO PCP - General Family Medicine 02/15/21 Inocencio Khan Jr., MD Consulting Physician Urology 05/17/21 documented as of this encounter
== END 2024-09-05 08:05 ==
PROVIDERS: Visit Provider Surgery
PROC: 0DJD8ZZ Inspection of Lower Intestinal Tract, Via Natural or Artificial Opening Endoscopic (ICD-10-PCS; CPT 45378; principal; 2024-09-05 07:30)
DX: Z12.11 Encounter for screening for malignant neoplasm of colon (principal)
CPT/HCPCS: 45378

== ENCOUNTER 2025-02-07 08:25 | Outpatient (CLI) | payer OTHER, SELFPAY | END 2025-02-07 08:26 | disposition home or self-care (01) | LOC: GOSHIMG 08:25 | PROVIDERS: PCP Nurse Practitioner; Visit Provider Nurse Practitioner | DX: M25.562 Pain in left knee (principal) | CPT/HCPCS: 73562 ==